=== PATIENT | female | born 1990 | race Caucasian/White ===

== ENCOUNTER 2023-11-01 14:51 | Outpatient (AMB) | payer OTHER, SELFPAY ==
--- NOTE | 2023-11-01 14:37 | MHC.PC.OV ---
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 Is last menstrual period known: Yes Last menstrual period: 11/01/23 Allergies No Known Allergies Allergy (Verified 11/01/23 14:55) Medication List - Last Reconciled 11/01/23 by Jodi Craig MD cholecalciferol (vitamin D3) 25 mcg PO DAILY magnesium oxide 400 mg PO DAILY mycophenolate mofetil 500 mg PO BID nifedipine ER 30 mg PO DAILY prednisone 5 mg PO DAILY sennosides-docusate sodium 8.6-50 mg (Senokot-S) 1 tab-cap PO BEDTIME sodium bicarbonate 650 mg PO BID tacrolimus 1 mg PO Q12H Tobacco use date assessed: 11/01/23 Dental Screening Dental Screen Date: 11/01/23 Did you have a dental visit in the last 12 months?: No Did you have a dental problem in the last 6 months where you did not have access to dental care?: No Was dental information given to patient?: Yes HPI HPI Comments History of Present Illness Details 33 year old female with a past medical of ESRD s/p transplant, congenital kidney disease, hypertension, depression presenting to [facility]. Moved from [facility] Was living in [facility]-getting routine care at [facility]. Tells me at age 25 found out she had congenitally small and poor functioning kidneys ultimately going for transplant 08/2020. Got fistula but never got HD. On immunosuppresant therapy. Running low on sodium bicarbonate rx. Needs local nephrology Depression: Previously on sertraline. Says this was ineffective and she stopped quite awhile ago. She would like to try another medication. ROS CONSTITUTIONAL: Denies weight loss, fever and chills. HEENT: Denies changes in vision and hearing. RESPIRATORY: Denies SOB and cough. CV: Denies palpitations and CP GI: Denies abdominal pain, nausea, vomiting and diarrhea. : Denies dysuria and urinary frequency. MSK: Denies new myalgia and joint pain. SKIN: Denies rash and pruritus. NEUROLOGICAL: Denies headache PSYCHIATRIC: see PHQ9 PHYSICAL EXAM: GENERAL: Alert and oriented x 3. NAD EYES: EOMI. Anicteric. HENT: Moist mucous membranes. No scleral icterus. No cervical lymphadenopathy. LUNGS: Clear to auscultation bilaterally. CARDIOVASCULAR: Regular rate and rhythm. No murmur. No JVD. ABDOMEN: Soft, non-tender +bs EXTREMITIES: No edema. Non-tender. SKIN: Right AV fistula site NEUROLOGIC: No focal neurological deficits. PSYCHIATRIC: Cooperative. Appropriate mood and affect [facility] Surgical History (Updated 11/01/23 @ 15:26 by oJdi Craig MD) Kidney replaced by transplant Family History (Updated 11/01/23 @ 15:20 by SMA Alisson) Mother HTN (hypertension) Father Diabetes Cardiovascular disease Social History Housing: House Patient Tobacco Use Status: Never used Tobacco e-Cigarette/Vaping Use: Never Used Second Hand Smoke Exposure: No service: No Current occupational status: unemployed Cognitive needs: No Hearing needs: No Vision needs: No Female Reproductive History Menstrual Date of last menstrual period: 11/01/23 Questionnaire PHQ-9 Over the last 2 weeks, how often have you been bothered by any of the following problems? 1. Little interest or pleasure in doing things: more than half the days 2. Feeling down, depressed, or hopeless: nearly every day 3. Trouble falling or staying asleep, or sleeping too much: more than half the days 4. Feeling tired or having little energy: more than half the days 5. Poor appetite or overeating: more than half the days 6. Feeling bad about yourself - or that you are a failure or have let yourself or your family down: more than half the days 7. Trouble concentrating on things, such as reading the newspaper or watching television: more than half the days 8. Moving or speaking so slowly that other people could have noticed. Or the opposite - being so fidgety or restless that you have been moving around a lot more than usual: several days 9. Thoughts that you would be better off or of hurting yourself in some way: not at all Total score: 16 Depression Screening Interpretation: Positive Depression Screening Follow-up: Existing condition and New Medication prescribed Depression Screening Done: Yes 37776 - PHQ-9 Billing: Yes Source: Developed by Drs. Nader Sahu, Dona Cruz, New Parnell and colleagues, with an educational jeremiah from [employer]. Thrive Questionnaire Date Thrive assessed: 11/01/23 I am a: Patient What is your living situation today?: I do not have a steady places to live Within the past 12 months, did the food you bought not last and you didn't have the money to get more?: Never true Within the past 12 months, did you worry whether your food would run out before you got money to buy more?: Sometimes True Do you have trouble paying for medicines?: No Do you have trouble getting transportation to medical appointments?: No Do you have trouble paying your heating and electricity bill?: No Do you have trouble taking care of your child, family member or friend?: No Do you have trouble with day-to-day activities such as bathing, preparing meals, shopping, managing finances, etc.?: No Are you currently unemployed and looking for a job?: Yes Are you interested in more education?: Yes Please select the resources that you would like help with: Housing/Group Home and Childcare THRIVE Score: 2 AUDIT C Alcohol Use Questionnaire (AUDIT-C) 1. How often do you have a drink containing alcohol?: Never 3. How often do you have six or more drinks on one occasion?: Never Total Score: 0 PEDRO-7 AMB Questionnaire PEDRO-7 Feeling nervous, anxious, or on edge: 1 = Several days Not being able to stop or control worryin = More than half the days Worrying too much about different things: 1 = Several days Trouble relaxin = Several days Being so restless that it is hard to sit still: 0 = Not at all Becoming easily annoyed or irritable: 3 = Nearly every day Feeling afraid as if something awful might happen: 1 = Several days Total PEDRO-7 score (0-4 normal; 5-9 mild; 10-14 moderate; 15-21 severe): 9 Source: Developed by Drs. Nader Sahu, [place] and colleagues, with an educational jeremiah from [employer]. PEDRO-7 Assessment Billing PEDRO-7 Assessment Tool: PEDRO-7 Assessment 55470 Physical exam (Primary Care) Vital Signs: Last Vital Signs Temp 97.9 F 11/01/23 14:59 Pulse 93 11/01/23 14:59 BP 126/76 11/01/23 14:59 Pulse Ox 98 11/01/23 14:59 Oxygen Delivery Method Room Air 11/01/23 14:59 BMI result Body Mass Index 38.4 Tobacco/Smoking Status: Tobacco use Status Tobacco use date assessed 11/01/23 11/01/23 15:04 Patient Tobacco Use Status Never used Tobacco 11/01/23 15:04 e-Cigarette/Vaping Use Never Used 11/01/23 15:04 Depression Screening Interpretation: Positive Depression Screening Follow-up: Existing condition and New Medication prescribed Assessment and Plan Assessment & Plan (1) Encounter to establish care: Code(s): Z76.89 - Persons encountering health services in other specified circumstances Plan: 33 yo female presenting to establish care. Past medical, surgical, social and family history reviewed. Patients medical records have not yet been transferred. referral placed to nephrology (2) Constipation: Code(s): K59.00 - Constipation, unspecified Qualifiers: Constipation type: unspecified constipation type Qualified Code(s): K59.00 - Constipation, unspecified (3) Hypertension: Code(s): I10 - Essential (primary) hypertension Qualifiers: Hypertension type: primary hypertension Qualified Code(s): I10 - Essential (primary) hypertension Plan: stable on current medications (4) Major depressive disorder, recurrent episode: Comment: start wellbutrin 150mg daily. return six weeks Code(s): F33.9 - Major depressive disorder, recurrent, unspecified Qualifiers: Major depression episode severity: moderate Qualified Code(s): F33.1 - Major depressive disorder, recurrent, moderate (5) History of kidney transplant: Code(s): Z94.0 - Kidney transplant status (6) Immunosuppressed status: Code(s): D84.9 - Immunodeficiency, unspecified Orders: Referrals Nephrology Referral Z94.0 - Kidney transplant status Medications: New sodium bicarbonate 650 mg PO BID 90 days 180 tabs 1RF bupropion HCl XL 150 mg PO DAILY 90 tabs 1RF Coding Level of Care Code New Pt Level 5 (34616) Diagnoses Encounter to establish care Z76.89 Constipation, unspecified constipation type K59.00 Constipation type: unspecified constipation type Primary hypertension I10 Hypertension type: primary hypertension Moderate episode of recurrent major depressive disorder F33.1 Major depression episode severity: moderate History of kidney transplant Z94.0 Immunosuppressed status D84.9 Additional Codes PEDRO-7 Assessment Billing - PEDRO-7 Assessment Tool: PEDRO-7 Assessment [id number] ([id number])
[2023-11-01 14:59] VITALS: BP 126/76; PULSE 93; TEMP 36.6; O2SAT 98; BMI 38.4
== END 2023-11-01 15:44 | disposition home or self-care (01) ==
PROVIDERS: PCP Internal Medicine; Visit Provider Internal Medicine
DX: I10 Essential (primary) hypertension (principal); F33.1 Major depressive disorder, recurrent, moderate; D84.9 Immunodeficiency, unspecified; Z76.89 Persons encountering health services in other specified circumstances; K59.00 Constipation, unspecified; Z94.0 Kidney transplant status
CPT/HCPCS: 96127; 99204

== ENCOUNTER 2024-03-02 15:11 | Outpatient (AMB) | payer MEDICARE, MEDICAID, SELFPAY ==
--- NOTE | 2024-03-02 15:25 | MHC.PC.OV ---
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 Tells me at age 25 found out she had congenitally small and poor functioning kidneys ultimately going for transplant 08/2020. Got fistula but never got HD. On immunosuppresant therapy. Running low on sodium bicarbonate rx. Needs local nephrology-at last visit was referred however her insurance would not cover. She has a kab slip from her previous provider in [place] Depression: Previously on sertraline. She was placed on wellbutrin at her last visit. She says she is feeling better on the medication. Says this was ineffective and she stopped quite awhile ago. She would like to try another medication. ROS CONSTITUTIONAL: Denies weight loss, fever and chills. HEENT: Denies changes in vision and hearing. RESPIRATORY: Denies SOB and cough. CV: Denies palpitations and CP GI: Denies abdominal pain, nausea, vomiting and diarrhea. : Denies dysuria and urinary frequency. MSK: Denies new myalgia and joint pain. SKIN: Denies rash and pruritus. NEUROLOGICAL: Denies headache PSYCHIATRIC: see PHQ9 PHYSICAL EXAM: GENERAL: Alert and oriented x 3. NAD EYES: EOMI. Anicteric. HENT: Moist mucous membranes. No scleral icterus. No cervical lymphadenopathy. LUNGS: Clear to auscultation bilaterally. CARDIOVASCULAR: Regular rate and rhythm. No murmur. No JVD. ABDOMEN: Soft, non-tender +bs EXTREMITIES: No edema. Non-tender. SKIN: Right AV fistula site NEUROLOGIC: No focal neurological deficits. PSYCHIATRIC: Cooperative. Appropriate mood and affect [facility] Surgical History (Updated 11/01/23 @ 15:26 by Jodi Craig MD) Kidney replaced by transplant Family History (Updated 11/01/23 @ 15:20 by SMA Alisson) Mother HTN (hypertension) Father Diabetes Cardiovascular disease Social History Housing: House Patient Tobacco Use Status: Never used Tobacco e-Cigarette/Vaping Use: Never Used Second Hand Smoke Exposure: No service: No Current occupational status: unemployed Cognitive needs: No Hearing needs: No Vision needs: No Questionnaire PHQ-9 Over the last 2 weeks, how often have you been bothered by any of the following problems? 1. Little interest or pleasure in doing things: several days 2. Feeling down, depressed, or hopeless: more than half the days 3. Trouble falling or staying asleep, or sleeping too much: several days 4. Feeling tired or having little energy: several days 5. Poor appetite or overeating: several days 6. Feeling bad about yourself - or that you are a failure or have let yourself or your family down: several days 8. Moving or speaking so slowly that other people could have noticed. Or the opposite - being so fidgety or restless that you have been moving around a lot more than usual: not at all Depression Screening Interpretation: Positive Depression Screening Done: Yes 35641 - PHQ-9 Billing: Yes Source: Developed by Drs. Nader Sahu, Dona Cruz, [place] and colleagues, with an educational jeremiah from [employer]. Thrive Questionnaire Date Thrive assessed: 03/02/24 I am a: Patient What is your living situation today?: I do not have a steady places to live I am temporarily staying with others Within the past 12 months, did the food you bought not last and you didn't have the money to get more?: Sometimes True Within the past 12 months, did you worry whether your food would run out before you got money to buy more?: Sometimes True Do you have trouble paying for medicines?: I choose not to answer this question Do you have trouble getting transportation to medical appointments?: I choose not to answer this question Do you have trouble paying your heating and electricity bill?: I choose not to answer this question Do you have trouble taking care of your child, family member or friend?: No Do you have trouble with day-to-day activities such as bathing, preparing meals, shopping, managing finances, etc.?: No Are you currently unemployed and looking for a job?: I choose not to answer this question Are you interested in more education?: I choose not to answer this question Please select the resources that you would like help with: Housing/[employer] and Food Currently or been in a relationship where the following occur: I choose not to answer THRIVE Score: 3 AUDIT C Alcohol Use Questionnaire (AUDIT-C) 1. How often do you have a drink containing alcohol?: Never 3. How often do you have six or more drinks on one occasion?: Never Total Score: 0 PEDRO-7 AMB Questionnaire PEDRO-7 Feeling nervous, anxious, or on edge: 2 = More than half the days Not being able to stop or control worryin = Nearly every day Worrying too much about different things: 3 = Nearly every day Trouble relaxin = More than half the days Being so restless that it is hard to sit still: 0 = Not at all Becoming easily annoyed or irritable: 2 = More than half the days Feeling afraid as if something awful might happen: 3 = Nearly every day Total PEDRO-7 score (0-4 normal; 5-9 mild; 10-14 moderate; 15-21 severe): 15 Source: Developed by Drs. Nader Sahu, Dona Cruz, New Parnell and colleagues, with an educational jeremiah from [employer]. Physical exam (Primary Care) Vital Signs: Last Vital Signs Pulse 100 03/02/24 15:31 BP 108/72 03/02/24 15:31 Pulse Ox 98 03/02/24 15:31 Oxygen Delivery Method Room Air 03/02/24 15:31 BMI result Body Mass Index 37.7 Tobacco/Smoking Status: Tobacco use Status Tobacco use date assessed 11/01/23 03/02/24 15:26 Patient Tobacco Use Status Never used Tobacco 03/02/24 15:26 e-Cigarette/Vaping Use Never Used 03/02/24 15:26 Depression Screening Interpretation: Positive Thrive Assessment: Date of Thrive Assessment Date Thrive assessed 03/02/24 03/02/24 15:26 Currently or been in a relationship where the following occur: I choose not to answer Coding Level of Care Code Est Pt Level 4 (70472) Diagnoses Moderate episode of recurrent major depressive disorder F33.1 Major depression episode severity: moderate History of kidney transplant Z94.0 Assessment & Plan Assessment & Plan (1) Major depressive disorder, recurrent episode: Code(s): F33.9 - Major depressive disorder, recurrent, unspecified Category: Medical Qualifiers: Major depression episode severity: moderate Qualified Code(s): F33.1 - Major depressive disorder, recurrent, moderate Plan: Improved on med (2) History of kidney transplant: Code(s): Z94.0 - Kidney transplant status Category: Surgical Plan: Referred to nephrology-RTA Orders: Referrals Nephrology Referral D84.9 - Immunodeficiency, unspecified, Z94.0 - Kidney transplant status Medications: New furosemide 20 mg PO DAILY 90 tabs 3RF tacrolimus 1 mg PO Q12H 180 caps 3RF
[2024-03-02 15:31] VITALS: BP 108/72; PULSE 100; O2SAT 98; BMI 37.7
== END 2024-03-02 15:50 | disposition home or self-care (01) ==
PROVIDERS: PCP Internal Medicine; Visit Provider Internal Medicine
DX: F33.1 Major depressive disorder, recurrent, moderate (principal); Z94.0 Kidney transplant status

== ENCOUNTER → 2024-03-02 15:11 | Outpatient (BNVA) | payer MEDICARE, SELFPAY | PROVIDERS: PCP Internal Medicine; Visit Provider Internal Medicine ==

== ENCOUNTER 2024-03-02 15:58 | Outpatient (REF) | payer MEDICARE, SELFPAY ==
[2024-03-02 17:21] LABS: MANUAL DIFF FLAG NO
[2024-03-02 17:37] LABS: Basophils Absolute Auto 0.1 X10*3/uL (0.0-0.2); Basophils Percent Auto 0.7 % (0-2); Eosinophils Absolute Auto 0.1 X10*3/uL (0.0-0.4); Eosinophils Percent Auto 0.6 % (0-4); Hematocrit 39.4 % (37.0-47.0); Hemoglobin 12.7 g/dl (12.0-16.0); Imm Gran Abs Auto 0.02 X10*3/uL (0.00-0.03); Imm Gran Pct Auto 0.2 % (0.0-0.4); Lymphocytes Absolute Auto 1.4 X10*3/uL (1.2-4.9); Lymphocytes Percent Auto 14.6 % (20-40); Mean Corpuscular HGB Conc 32.2 g/dl (31.0-35.0); Mean Corpuscular Hemoglobin 27.4 pg (27.0-33.0); Mean Corpuscular Volume 84.9 fL (80.0-98.0); Mean Platelet Volume 11.2 fL (9.4-12.3); Monocytes Absolute Auto 0.7 X10*3/uL (0.1-1.2); Monocytes Percent Auto 7.1 % (2-11); Neutrophils Absolute Auto 7.6 x10*3/uL (2.0-8.3); Neutrophils Percent Auto 76.8 % (45-73); Platelet Count 335 X10*3/uL (160-400); Red Blood Count 4.64 X10*6/uL (4.20-5.50); White Blood Count 9.8 X10*3/uL (4.8-10.8)
[2024-03-02 17:38] LABS: Creatinine Urine 163.46 mg/dL; Total Protein Urine Random 14 mg/dL (<12)
[2024-03-02 17:55] LABS: Alanine Aminotransferase 20 U/L (0-31); Albumin Level 4.2 g/dL (3.5-5.0); Alkaline Phosphatase 91 U/L (39-117); Anion Gap 14 (12-20); Aspartate Amino Transferase 21 U/L (5-31); Bilirubin Direct 0.2 mg/dL (0.0-0.5); Bilirubin Total 0.6 mg/dL (0.0-1.0); Blood Urea Nitrogen 21 mg/dL (9-16); Calcium 9.4 mg/dL (8.4-10.2); Carbon Dioxide 23 mmol/L (22-29); Chloride 105 mmol/L (96-108); Estimated Glomerular Filt Rate 35; Glucose Random 94 mg/dL (60-115); Lactate Dehydrogenase 208 U/L (122-220); Phosphorus 3.4 mg/dL (2.7-4.5); Potassium 3.9 mmol/L (3.3-5.1); Sodium 138 mmol/L (135-145); Total Protein 7.9 g/dL (6.5-8.0)
[2024-03-04 01:54] LABS: Tacrolimus Prograf 5.6 mcg/L
== END 2024-03-02 15:59 | disposition home or self-care (01) ==
LOC: HO.WFDLDS 15:58
PROVIDERS: Visit Provider Internal Medicine Nephrology
DX: F33.1 Major depressive disorder, recurrent, moderate (principal); D84.9 Immunodeficiency, unspecified; Z94.0 Kidney transplant status; D63.1 Anemia in chronic kidney disease; N39.0 Urinary tract infection, site not specified; Z51.81 Encounter for therapeutic drug level monitoring; E78.5 Hyperlipidemia, unspecified; R80.9 Proteinuria, unspecified
CPT/HCPCS: 36415; 80053; 80197; 82248; 82570; 83615; 83735; 84100; 84156; 85025; 99212

== ENCOUNTER 2024-03-26 14:39 | Outpatient (AMB) | payer MEDICARE, MEDICAID, SELFPAY ==
--- NOTE | 2024-03-26 14:44 | HO.NEPHOV_ITS ---
Vital Signs 03/26/24 14:49 Height 5 ft 1.42 in Weight 202 lb 2 oz BMI 37.7 BP 112/60 Blood Pressure Location Lt brachial Position Sitting Pulse 107 H Pulse Source Pulse Oximeter Pulse Oximetry (%) 99 Oxygen Delivery Method Room Air Intake Visit Reasons: Kidney transplant status-Conf Foreign Trade Teacher Required: Yes Foreign Trade Teacher Language: Heel Cutter Services: Foreign Trade Teacher Present Foreign Trade Teacher Name: [id number] Information Interpreted: clinical only Accompanied by: Child Allergies No Known Allergies Allergy (Verified 03/26/24 14:49) Medication List - Last Reconciled 03/26/24 by Cruz New MD bupropion HCl XL 150 mg PO DAILY cholecalciferol (vitamin D3) 25 mcg PO DAILY furosemide 20 mg PO DAILY magnesium oxide 400 mg PO DAILY mycophenolate mofetil 500 mg PO TID nifedipine ER 30 mg PO DAILY prednisone 5 mg PO DAILY sodium bicarbonate 1,300 mg PO QID tacrolimus 3 mg PO DAILY HPI Comments Details: Ms. 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 She was never on dialysis and had a pre-emptive transplant. She had a right upper extremity AV fistula. Her PRA was 87%, EPTS 2% with the donor/recipient HLA MM, A, B, DR 2,2,2. Surgery was performed by Dr. Ugarte, right to right. Her donor KDPI was 40 6%. Donor history unremarkable. CMV donor was negative but recipient positive. EBV donor positive and recipient positive. Induction was done with Thymoglobulin and maintenance treatment had been with prednisone, tacrolimus and mycophenolate. She never had any significant proteinuria with a stable serum creatinine around 1.4. She had DSA absent by the last result fax note to me from [place]. Her CMV prophylaxis was completed on 11/20/2021 with a PCP/toxo prophylaxis completed on 02/20/2022. Her BK and CMV PCR was negative on 11/12/22. She has hypertension and is on nifedipine. Her blood pressure is quite well controlled. Her PTH and vitamin-D had been well controlled. She has been taking oral vitamin-D D. Her serum uric acid has been normal. She has moved from [facility] and is here to establish transplant renal care. She does not have any chest pain, shortness of breath, paroxysmal nocturnal dyspnea, orthopnea, orthostatic symptoms, pedal edema, skin rashes, joint swellings. She does not take any nonsteroidal anti-inflammatories. She claims to be compliant with her medications. [facility] Medical History (Updated 03/26/24 @ 14:53 by Cruz New MD) AV fistula Asthma Hypertension Surgical History (Updated 03/26/24 @ 09:12 by Mary Beth Jiang MA) Status post biopsy of kidney H/O tubal ligation Kidney replaced by transplant Family History (Updated 11/01/23 @ 15:20 by SMA Alisson) Mother HTN (hypertension) Father Diabetes Cardiovascular disease Social History Housing: House Patient Tobacco Use Status: Never used Tobacco e-Cigarette/Vaping Use: Never Used Second Hand Smoke Exposure: No service: No Current occupational status: unemployed Cognitive needs: No Hearing needs: No Vision needs: No Review of Systems Const All systems reviewed & are unremarkable except as noted in HPI and below Physical Exam Const General: comfortable and no acute distress Orientation/consciousness: patient oriented x3 HEENT Head: Yes normocephalic Mouth: Normal oral and palatal mucosa present Eyes EOM: EOMs intact bilaterally Neck Neck: Yes supple Resp Auscultation: clear to auscultation bilaterally Cardio Jugular venous distension: no JVD Rate: regular rate GI Palpation (GI): Soft to palpation Auscultation: normal bowel sounds General: Yes no CVA tenderness Back/Spine/Pelvis Back: no CVA tenderness Skin General skin exam: no rashes or lesions noted Neuro General: patient oriented x3 and moves all extremities Extrem General: Yes no pedal edema Results Reviewed Nephrology Results: Hgb 12.7 g/dl (12.0-16.0) 03/02/24 WBC 9.8 X10*3/uL (4.8-10.8) 03/02/24 Plt Count 335 X10*3/uL (160-400) 03/02/24 Sodium 138 mmol/L (135-145) 03/02/24 Potassium 3.9 mmol/L (3.3-5.1) 03/02/24 Chloride 105 mmol/L (96-108) 03/02/24 Carbon Dioxide 23 mmol/L (22-29) 03/02/24 BUN 21 mg/dL (9-16) H 03/02/24 Creatinine 1.71 mg/dL (0.5-1.4) H 03/02/24 Calcium 9.4 mg/dL (8.4-10.2) 03/02/24 Phosphorus 3.4 mg/dL (2.7-4.5) 03/02/24 Urine Creatinine 163.46 mg/dL 03/02/24 Assessment & Plan Assessment & Plan (1) History of kidney transplant: Code(s): Z94.0 - Kidney transplant status Category: Surgical (2) Hypertension: Code(s): I10 - Essential (primary) hypertension Category: Medical Qualifiers: Hypertension type: secondary to other renal disorders Qualified Code(s): I15.1 - Hypertension secondary to other renal disorders (3) Immunosuppressed status: Code(s): D84.9 - Immunodeficiency, unspecified Category: Medical Plan Mr. 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 She never was on dialysis even though she had a upper extremity AV fistula. Her baseline serum creatinine has been around 1.4-1.5 which has gone up to 1.7 now. She is not known to have any significant proteinuria. She has no history of DSA positivity, cellular or antibody mediated rejection. She has history of high PRA and has been on tacrolimus and mycophenolate along with prednisone. Her CMV and PCP prophylaxis were completed in 2021. Her blood pressure has been well controlled on nifedipine. He needs to lose weight. She is on oral sodium bicarbonate and magnesium replacement along with a vitamin-D. I have ordered repeat blood work. If her serum creatinine goes up, she may need a transplant renal biopsy. All these were discussed in detail with an muff winder. All questions answered. Time spent retrieving records, encounter, documentation 63 minutes. F/U given Orders: Orders Tacrolimus Prograf 3 Weeks Cruz New MD D84.9 - Immunodeficiency, unspecified, Z94.0 - Kidney transplant status Creatinine 3 Weeks Cruz New MD D84.9 - Immunodeficiency, unspecified, Z94.0 - Kidney transplant status Blood Urea Nitrogen 3 Weeks Cruz New MD D84.9 - Immunodeficiency, unspecified, Z94.0 - Kidney transplant status Magnesium 3 Weeks Cruz New MD D84.9 - Immunodeficiency, unspecified, Z94.0 - Kidney transplant status Alanine Aminotransferase 3 Weeks Cruz New MD D84.9 - Immunodeficiency, unspecified, Z94.0 - Kidney transplant status Aspartate Amino Transferase 3 Weeks Cruz New MD D84.9 - Immunodeficiency, unspecified, Z94.0 - Kidney transplant status Protein Creatinine Ratio, Ur 3 Weeks Cruz New MD D84.9 - Immunodeficiency, unspecified, Z94.0 - Kidney transplant status Other Ref Test - Misc 3 Weeks Cruz New MD D84.9 - Immunodeficiency, unspecified, Z94.0 - Kidney transplant status Complete Blood Count Auto Diff 3 Weeks Cruz New MD D84.9 - Immunodeficiency, unspecified, Z94.0 - Kidney transplant status Electrolytes 3 Weeks Cruz New MD D84.9 - Immunodeficiency, unspecified, Z94.0 - Kidney transplant status Calcium 3 Weeks Cruz New MD D84.9 - Immunodeficiency, unspecified, Z94.0 - Kidney transplant status Phosphorus 3 Weeks Cruz New MD D84.9 - Immunodeficiency, unspecified, Z94.0 - Kidney transplant status UA and rflx microscopic 3 Weeks Cruz New MD D84.9 - Immunodeficiency, unspecified, Z94.0 - Kidney transplant status Prothrombin Time INR 3 Weeks Cruz New MD D84.9 - Immunodeficiency, unspecified, Z94.0 - Kidney transplant status Medications: Changed From tacrolimus 1 mg PO Q12H 180 caps 3RF To tacrolimus 1 tab 9AM 2 tabs 9PM 3 mg PO DAILY Jodi Craig MD From sodium bicarbonate 1,300 mg PO QID To sodium bicarbonate 1,300 mg (2 x 650 mg) PO QID 30 days 240 tabs 6RF Cruz New MD Coding Level of Care Code New Pt Level 5 (24321) Diagnoses History of kidney transplant Z94.0 Hypertension secondary to other renal disorders I15.1 Hypertension type: secondary to other renal disorders Immunosuppressed status D84.9
[2024-03-26 14:49] VITALS: BP 112/60; PULSE 107; O2SAT 99; BMI 37.7
== END 2024-03-26 15:17 | disposition home or self-care (01) ==
LOC: HO.HKA 14:40
PROVIDERS: PCP Internal Medicine; Referring Provider Internal Medicine; Visit Provider Internal Medicine Nephrology
DX: Z94.0 Kidney transplant status (principal); I15.1 Hypertension secondary to other renal disorders; D84.9 Immunodeficiency, unspecified
CPT/HCPCS: 99205

== ENCOUNTER → 2024-03-26 14:39 | Outpatient (BNVA) | payer MEDICARE, MEDICAID, SELFPAY | PROVIDERS: PCP Internal Medicine; Referring Provider Internal Medicine; Visit Provider Internal Medicine Nephrology | DX: I15.1 Hypertension secondary to other renal disorders (principal); D84.9 Immunodeficiency, unspecified; Z94.0 Kidney transplant status | CPT/HCPCS: 99202 ==

== ENCOUNTER 2024-05-01 10:14 | Outpatient (REF) | payer MEDICARE, MEDICAID, SELFPAY ==
[2024-05-01 11:00] LABS: MANUAL DIFF FLAG NO
[2024-05-01 11:05] LABS: Basophils Absolute Auto 0.1 X10*3/uL (0.0-0.2); Basophils Percent Auto 1.3 % (0-2); Eosinophils Absolute Auto 0.1 X10*3/uL (0.0-0.4); Eosinophils Percent Auto 1.1 % (0-4); Hematocrit 38.4 % (37.0-47.0); Hemoglobin 12.3 g/dl (12.0-16.0); Imm Gran Abs Auto 0.03 X10*3/uL (0.00-0.03); Imm Gran Pct Auto 0.5 % (0.0-0.4); Lymphocytes Absolute Auto 1.5 X10*3/uL (1.2-4.9); Lymphocytes Percent Auto 23.7 % (20-40); Mean Corpuscular Hemoglobin 27.7 pg (27.0-33.0); Mean Corpuscular Volume 86.5 fL (80.0-98.0); Mean Platelet Volume 10.9 fL (9.4-12.3); Monocytes Absolute Auto 0.6 X10*3/uL (0.1-1.2); Monocytes Percent Auto 9.4 % (2-11); Platelet Count 264 X10*3/uL (160-400); Red Blood Count 4.44 X10*6/uL (4.20-5.50); Red Cell Distribution Width 13.4 % (11.0-16.0); White Blood Count 6.3 X10*3/uL (4.8-10.8)
[2024-05-01 11:07] LABS: INTERNATIONAL NORM RATIO 1.1 (0.9-1.1); Prothrombin Time 12.5 SEC (10.9-12.4)
[2024-05-01 11:08] LABS: Appearance Urine Clear; Color Urine Yellow; Glucose Urine UA Negative (Negative); Leukocyte Esterase Urine Negative (Negative); Nitrite Urine Negative (Negative); PH 6.5 (5.0-9.0); Urine Blood Negative (Negative); Urine Ketones Negative (Negative); Urine Protein Negative (Neg-Trace)
[2024-05-01 11:50] LABS: Alanine Aminotransferase 20 U/L (0-31); Anion Gap 13 (12-20); Aspartate Amino Transferase 21 U/L (5-31); Blood Urea Nitrogen 17 mg/dL (9-16); Carbon Dioxide 25 mmol/L (22-29); Chloride 108 mmol/L (96-108); Estimated Glomerular Filt Rate 40; Phosphorus 2.8 mg/dL (2.7-4.5); Potassium 4.5 mmol/L (3.3-5.1); Sodium 141 mmol/L (135-145)
[2024-05-01 11:51] LABS: Creatinine Urine 159.31 mg/dL; Protein/Creatinine Ratio, Ur 0.08 (<0.2); Total Protein Urine Random 13 mg/dL (<12)
[2024-05-02 13:58] LABS: Tacrolimus Prograf 3.4 mcg/L
== END 2024-05-01 10:15 | disposition home or self-care (01) ==
LOC: HO.10HDL 10:14
PROVIDERS: Visit Provider Internal Medicine Nephrology
DX: D84.9 Immunodeficiency, unspecified (principal); Z94.0 Kidney transplant status
CPT/HCPCS: 36415; 80051; 80197; 81003; 82310; 82565; 82570; 83735; 84100; 84156; 84450; 84460; 84520; 85025; 85610; 87799

== ENCOUNTER 2024-05-04 14:04 | Outpatient (AMB) | payer MEDICARE, MEDICAID, SELFPAY ==
--- NOTE | 2024-05-04 14:10 | HO.NEPHOV ---
Vital Signs 05/04/24 14:12 Height 5 ft 1.42 in Weight 205 lb 6 oz BMI 38.3 BP 102/70 Blood Pressure Location Lt brachial Position Sitting Pulse 99 Pulse Source Pulse Oximeter Pulse Oximetry (%) 98 Oxygen Delivery Method Room Air Intake Visit Reasons: Kidney transplant status-LV [employer] Required: Yes [employer] Language: Office Services Associate Services: [employer] Present [employer] Name: Nicole [id number] Information Interpreted: clinical only Accompanied by: Child Allergies No Known Allergies Allergy (Verified 05/04/24 14:11) Medication List - Last Reconciled 05/04/24 by Cruz New MD bupropion HCl XL 150 mg PO DAILY cholecalciferol (vitamin D3) 25 mcg PO DAILY furosemide 20 mg PO DAILY magnesium oxide 400 mg PO DAILY mycophenolate mofetil 500 mg (2 x 250 mg) PO TID nifedipine ER 30 mg PO DAILY prednisone 5 mg PO DAILY sodium bicarbonate 1,300 mg (2 x 650 mg) PO QID 30 days tacrolimus 2 mg PO BID HPI Comments Details: Ms. 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 She was never on dialysis and had a pre-emptive transplant. She had a right upper extremity AV fistula. Her PRA was 87%, EPTS 2% with the donor/recipient HLA MM, A, B, DR 2,2,2. Surgery was performed by Dr. Ugarte, right to right. Her donor KDPI was 40 6%. Donor history unremarkable. CMV donor was negative but recipient positive. EBV donor positive and recipient positive. Induction was done with Thymoglobulin and maintenance treatment had been with prednisone, tacrolimus and mycophenolate. She never had any significant proteinuria with a stable serum creatinine around 1.4. It had gone upto 1.7 which improved to 1.5. She had DSA absent by the last result fax note to me from [place]. Her CMV prophylaxis was completed on 11/20/2021 with a PCP/toxo prophylaxis completed on 02/20/2022. Her BK and CMV PCR was negative on 11/12/22. She has hypertension and is on nifedipine. Her blood pressure is quite well controlled. Her PTH and vitamin-D had been well controlled. She has been taking oral vitamin-D D. Her serum uric acid has been normal. She has moved from [facility] and was seen for transplant renal care. She does not have any chest pain, shortness of breath, paroxysmal nocturnal dyspnea, orthopnea, orthostatic symptoms, pedal edema, skin rashes, joint swellings. She does not take any nonsteroidal anti-inflammatories. She claims to be compliant with her medications. Her tacrolimus dose has been increased to 2 mg bid after last blood work. [facility] Medical History (Updated 03/26/24 @ 14:53 by Cruz New MD) AV fistula Asthma Hypertension Surgical History Status post biopsy of kidney H/O tubal ligation Kidney replaced by transplant Family History Mother HTN (hypertension) Father Diabetes Cardiovascular disease Social History Housing: House Patient Tobacco Use Status: Never used Tobacco e-Cigarette/Vaping Use: Never Used Second Hand Smoke Exposure: No service: No Current occupational status: unemployed Cognitive needs: No Hearing needs: No Vision needs: No Review of Systems Const All systems reviewed & are unremarkable except as noted in HPI and below Physical Exam Vital Signs: Last Vital Signs Pulse 99 05/04/24 14:12 BP 102/70 05/04/24 14:12 Pulse Ox 98 05/04/24 14:12 Oxygen Delivery Method Room Air 05/04/24 14:12 BMI result Body Mass Index 38.3 Const General: comfortable and no acute distress Orientation/consciousness: patient oriented x3 HEENT Head: Yes normocephalic Mouth: Normal oral and palatal mucosa present Eyes EOM: EOMs intact bilaterally Neck Neck: Yes supple Resp Auscultation: clear to auscultation bilaterally Cardio Jugular venous distension: no JVD Rate: regular rate GI Palpation (GI): Soft to palpation Auscultation: normal bowel sounds General: Yes no CVA tenderness Back/Spine/Pelvis Back: no CVA tenderness Skin General skin exam: no rashes or lesions noted Neuro General: patient oriented x3 and moves all extremities Extrem General: Yes no pedal edema Results Reviewed Nephrology Results: Hgb 12.3 g/dl (12.0-16.0) 05/01/24 WBC 6.3 X10*3/uL (4.8-10.8) 05/01/24 Plt Count 264 X10*3/uL (160-400) 05/01/24 Sodium 141 mmol/L (135-145) 05/01/24 Potassium 4.5 mmol/L (3.3-5.1) 05/01/24 Chloride 108 mmol/L (96-108) 05/01/24 Carbon Dioxide 25 mmol/L (22-29) 05/01/24 BUN 17 mg/dL (9-16) H 05/01/24 Creatinine 1.53 mg/dL (0.5-1.4) H 05/01/24 Calcium 9.0 mg/dL (8.4-10.2) 05/01/24 Phosphorus 2.8 mg/dL (2.7-4.5) 05/01/24 Urine Protein Negative mg/dL (Neg-Trace) 05/01/24 Urine Creatinine 159.31 mg/dL 05/01/24 Protein/Creatinin Ratio 0.08 (<0.2) 05/01/24 Assessment & Plan Assessment & Plan (1) History of kidney transplant: Code(s): Z94.0 - Kidney transplant status Category: Surgical (2) Hypertension: Code(s): I10 - Essential (primary) hypertension Category: Medical Qualifiers: Hypertension type: secondary to other renal disorders Qualified Code(s): I15.1 - Hypertension secondary to other renal disorders Plan Mr. 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 She never was on dialysis even though she had a upper extremity AV fistula. Her baseline serum creatinine has been around 1.4-1.5 which had gone up to 1.7 but back to baseline now. She is not known to have any significant proteinuria. She has no history of DSA positivity, cellular or antibody mediated rejection. She has history of high PRA and has been on tacrolimus and mycophenolate along with prednisone. Her CMV and PCP prophylaxis were completed in 2021. Her blood pressure has been well controlled on nifedipine. He needs to lose weight. She is on oral sodium bicarbonate and magnesium replacement along with a vitamin-D. All these were discussed in detail with an japanese interpreter. All questions answered. Orders: Orders Electrolytes 2 Months I15.1 - Hypertension secondary to other renal disorders, Z94.0 - Kidney transplant status Blood Urea Nitrogen 2 Months I15.1 - Hypertension secondary to other renal disorders, Z94.0 - Kidney transplant status Creatinine 2 Months I15.1 - Hypertension secondary to other renal disorders, Z94.0 - Kidney transplant status Tacrolimus Prograf 2 Months I15.1 - Hypertension secondary to other renal disorders, Z94.0 - Kidney transplant status Medications: Changed From tacrolimus 2 tab 9AM 2 tabs 9PM 2 mg PO BID To tacrolimus 2 tab 9AM 2 tabs 9PM 2 mg (2 x 1 mg) PO BID 30 days 120 caps 3RF Refilled mycophenolate mofetil 500 mg (2 x 250 mg) PO TID 180 caps 6RF sodium bicarbonate 1,300 mg (2 x 650 mg) PO QID 30 days 240 tabs 6RF Coding Level of Care Code Est Pt Level 4 (21139) Diagnoses History of kidney transplant Z94.0 Hypertension secondary to other renal disorders I15.1 Hypertension type: secondary to other renal disorders
[2024-05-04 14:12] VITALS: BP 102/70; PULSE 99; O2SAT 98; BMI 38.3
== END 2024-05-04 14:38 | disposition home or self-care (01) ==
PROVIDERS: PCP Internal Medicine; Visit Provider Internal Medicine Nephrology
DX: I15.1 Hypertension secondary to other renal disorders (principal); Z94.0 Kidney transplant status
CPT/HCPCS: 99214

== ENCOUNTER → 2024-05-04 14:04 | Outpatient (BNVA) | payer MEDICARE, MEDICAID, SELFPAY | PROVIDERS: PCP Internal Medicine; Visit Provider Internal Medicine Nephrology | DX: I15.1 Hypertension secondary to other renal disorders (principal); Z94.0 Kidney transplant status; Z79.899 Other long term (current) drug therapy | CPT/HCPCS: 99212 ==

== ENCOUNTER 2024-05-14 15:04 | Outpatient (AMB) | payer MEDICARE, MEDICAID, SELFPAY ==
--- NOTE | 2024-05-14 15:19 | A.OFFPC_ITS ---
Vital Signs 05/14/24 15:23 Height 5 ft 1.42 in Weight 206 lb 4 oz BMI 38.4 BP 124/76 Blood Pressure Location Lt radial Position Sitting Pulse 93 Pulse Source Pulse Oximeter Pulse Oximetry (%) 99 Oxygen Delivery Method Room Air Intake Visit Reasons: f/up 1/2h Intake Note: Follow up Medical Superintendent Required: Yes Medical Superintendent Language: Nursing Program Director Name: [id number] Allergies No Known Allergies Allergy (Verified 05/14/24 15:23) Tobacco use date assessed: 11/01/23 Dental Screening Dental Screen Date: 11/01/23 HPI HPI Comments History of Present Illness Details 33 year old female with a past medical o f ESRD s/p transplant, congenital kidney disease, hypertension, depression presenting for follow up Nephrology: Following with local nephrology now. stable Was living in [facility]-getting routine care at [facility]. Tells me at age 25 found out she had congenitally small and poor functioning kidneys ultimately going for transplant 08/2020. Got fistula but never got HD. On immunosuppresant therapy. Running low on sodium bicarbonate rx. Needs local nephrology-at last visit was referred however her insurance would not cover. She has a kab slip from her previous provider in [place] Depression: Feeling well on wellbutrin. Previously on sertraline. ROS CONSTITUTIONAL: Denies weight loss, fever and chills. HEENT: Denies changes in vision and hearing. RESPIRATORY: Denies SOB and cough. CV: Denies palpitations and CP GI: Denies abdominal pain, nausea, vomiting and diarrhea. : Denies dysuria and urinary frequency. MSK: Denies new myalgia and joint pain. SKIN: Denies rash and pruritus. NEUROLOGICAL: Denies headache PSYCHIATRIC: see PHQ9 PHYSICAL EXAM: GENERAL: Alert and oriented x 3. NAD EYES: EOMI. Anicteric. HENT: Moist mucous membranes. No scleral icterus. No cervical lymphadenopathy. LUNGS: Clear to auscultation bilaterally. CARDIOVASCULAR: Regular rate and rhythm. No murmur. No JVD. ABDOMEN: Soft, non-tender +bs EXTREMITIES: No edema. Non-tender. SKIN: Right AV fistula site NEUROLOGIC: No focal neurological deficits. PSYCHIATRIC: Cooperative. Appropriate mood and affect [facility] Medical History (Updated 03/26/24 @ 14:53 by Cruz New MD) AV fistula Asthma Hypertension Surgical History Status post biopsy of kidney H/O tubal ligation Kidney replaced by transplant Family History Mother HTN (hypertension) Father Diabetes Cardiovascular disease Social History Housing: House Patient Tobacco Use Status: Never used Tobacco e-Cigarette/Vaping Use: Never Used Second Hand Smoke Exposure: No service: No Current occupational status: unemployed Cognitive needs: No Hearing needs: No Vision needs: No Questionnaire PHQ-9 Over the last 2 weeks, how often have you been bothered by any of the following problems? 7. Trouble concentrating on things, such as reading the newspaper or watching television: not at all 9. Thoughts that you would be better off or of hurting yourself in some way: not at all Source: Developed by Drs. Nader Sahu, Dona Cruz, [place] and colleagues, with an educational jeremiah from [employer]. Thrive Questionnaire Date Thrive assessed: 03/02/24 I am a: Patient What is your living situation today?: I do not have a steady places to live I am temporarily staying with others Within the past 12 months, did the food you bought not last and you didn't have the money to get more?: Sometimes True Within the past 12 months, did you worry whether your food would run out before you got money to buy more?: Sometimes True Do you have trouble paying for medicines?: I choose not to answer this question Do you have trouble getting transportation to medical appointments?: I choose not to answer this question Do you have trouble paying your heating and electricity bill?: I choose not to answer this question Do you have trouble taking care of your child, family member or friend?: No Do you have trouble with day-to-day activities such as bathing, preparing meals, shopping, managing finances, etc.?: No Are you currently unemployed and looking for a job?: I choose not to answer this question Are you interested in more education?: I choose not to answer this question Currently or been in a relationship where the following occur: I choose not to answer THRIVE Score: 3 Physical exam (Primary Care) Vital Signs: Last Vital Signs Pulse 93 05/14/24 15:23 BP 124/76 05/14/24 15:23 Pulse Ox 99 05/14/24 15:23 Oxygen Delivery Method Room Air 05/14/24 15:23 BMI result Body Mass Index 38.4 Tobacco/Smoking Status: Tobacco use Status Tobacco use date assessed 11/01/23 05/14/24 15:20 Patient Tobacco Use Status Never used Tobacco 05/14/24 15:20 e-Cigarette/Vaping Use Never Used 05/14/24 15:20 Thrive Assessment: Date of Thrive Assessment Date Thrive assessed 03/02/24 05/14/24 15:20 Currently or been in a relationship where the following occur: I choose not to answer Coding Level of Care Code Est Pt Level 4 (69208) Diagnoses Moderate episode of recurrent major depressive disorder F33.1 Major depression episode severity: moderate Hypertension secondary to other renal disorders I15.1 Hypertension type: secondary to other renal disorders Assessment & Plan Assessment & Plan (1) Major depressive disorder, recurrent episode: Code(s): F33.9 - Major depressive disorder, recurrent, unspecified Category: Medical Qualifiers: Major depression episode severity: moderate Qualified Code(s): F33.1 - Major depressive disorder, recurrent, moderate Plan: stable on current medications (2) Hypertension: Code(s): I10 - Essential (primary) hypertension Category: Medical Qualifiers: Hypertension type: secondary to other renal disorders Qualified Code(s): I15.1 - Hypertension secondary to other renal disorders Plan: Controlled on current medications. continue follow up with nephrology Medications: Refilled bupropion HCl XL 150 mg PO DAILY 90 tabs 3RF mycophenolate mofetil 500 mg (2 x 250 mg) PO TID 180 caps 6RF nifedipine ER 30 mg PO DAILY 90 tabs 3RF
[2024-05-14 15:23] VITALS: BP 124/76; PULSE 93; O2SAT 99; BMI 38.4
== END 2024-05-14 15:45 | disposition home or self-care (01) ==
PROVIDERS: PCP Internal Medicine; Visit Provider Internal Medicine
DX: F33.1 Major depressive disorder, recurrent, moderate (principal); I15.1 Hypertension secondary to other renal disorders

== ENCOUNTER → 2024-05-14 15:04 | Outpatient (BNVA) | payer MEDICARE, SELFPAY | PROVIDERS: PCP Internal Medicine; Visit Provider Internal Medicine | DX: F33.1 Major depressive disorder, recurrent, moderate (principal); I15.1 Hypertension secondary to other renal disorders; N18.6 End stage renal disease; Z94.0 Kidney transplant status; Z79.899 Other long term (current) drug therapy | CPT/HCPCS: 99212 ==

== ENCOUNTER 2024-07-03 08:26 | Outpatient (REF) | payer MEDICARE, MEDICAID, SELFPAY ==
[2024-07-03 11:06] LABS: Anion Gap 10 (12-20); Blood Urea Nitrogen 18 mg/dL (9-16); Carbon Dioxide 25 mmol/L (22-29); Chloride 108 mmol/L (96-108); Estimated Glomerular Filt Rate 43; Potassium 3.5 mmol/L (3.3-5.1); Sodium 139 mmol/L (135-145)
[2024-07-04 09:48] LABS: Tacrolimus Prograf 6.1 mcg/L
== END 2024-07-03 08:27 | disposition home or self-care (01) ==
LOC: HO.10HDL 08:26
PROVIDERS: Visit Provider Internal Medicine Nephrology
DX: I15.1 Hypertension secondary to other renal disorders (principal); Z94.0 Kidney transplant status
CPT/HCPCS: 36415; 80051; 80197; 82565; 84520

== ENCOUNTER 2024-07-06 09:48 | Outpatient (AMB) | payer MEDICARE, MEDICAID, SELFPAY ==
--- NOTE | 2024-07-06 10:13 | HO.NEPHOV_ITS ---
Vital Signs 07/06/24 10:15 Height 5 ft 1.42 in Weight 204 lb 6 oz BMI 38.1 BP 124/70 Blood Pressure Location Lt brachial Position Sitting Pulse 95 Pulse Source Pulse Oximeter Pulse Oximetry (%) 98 Oxygen Delivery Method Room Air Intake Visit Reasons: Kidney transplant status/ LVM Legal Activity Adjudicator Required: Yes Legal Activity Adjudicator Language: Training Development Specialist Services: Legal Activity Adjudicator Present Legal Activity Adjudicator Name: Carol [id number] Accompanied by: Child Allergies No Known Allergies Allergy (Verified 07/06/24 10:15) HPI Comments Details: Ms. 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 She was never on dialysis and had a pre-emptive transplant. She had a right upper extremity AV fistula. Her PRA was 87%, EPTS 2% with the donor/recipient HLA MM, A, B, DR 2,2,2. Surgery was performed by Dr. Ugarte, right to right. Her donor KDPI was 40 6%. Donor history unremarkable. CMV donor was negative but recipient positive. EBV donor positive and recipient positive. Induction was done with Thymoglobulin and maintenance treatment had been with prednisone, tacrolimus and mycophenolate. She never had any significant proteinuria with a stable serum creatinine around 1.4. It had gone upto 1.7 which improved to 1.5. She had DSA absent by the last result fax note to me from [place]. Her CMV prophylaxis was completed on 11/20/2021 with a PCP/toxo prophylaxis completed on 02/20/2022. Her BK and CMV PCR was negative on 11/12/22. She has hypertension and is on nifedipine. Her blood pressure is quite well controlled. Her PTH and vitamin-D had been well controlled. She has been taking oral vitamin-D D. Her serum uric acid has been normal. She has moved from [facility] and was seen for transplant renal care. She does not have any chest pain, shortness of breath, paroxysmal nocturnal dyspnea, orthopnea, orthostatic symptoms, pedal edema, skin rashes, joint swellings. She does not take any nonsteroidal anti-inflammatories. She claims to be compliant with her medications. Her tacrolimus dose has been increased to 2 mg bid after last blood work. [facility] Medical History (Updated 03/26/24 @ 14:53 by Cruz New MD) AV fistula Asthma Hypertension Surgical History Status post biopsy of kidney H/O tubal ligation Kidney replaced by transplant Family History Mother HTN (hypertension) Father Diabetes Cardiovascular disease Social History Housing: House Patient Tobacco Use Status: Never used Tobacco e-Cigarette/Vaping Use: Never Used Second Hand Smoke Exposure: No service: No Current occupational status: unemployed Cognitive needs: No Hearing needs: No Vision needs: No Review of Systems Const All systems reviewed & are unremarkable except as noted in HPI and below Physical Exam Vital Signs: Last Vital Signs Pulse 95 07/06/24 10:15 BP 124/70 07/06/24 10:15 Pulse Ox 98 07/06/24 10:15 Oxygen Delivery Method Room Air 07/06/24 10:15 BMI result Body Mass Index 38.1 Const General: comfortable and no acute distress Orientation/consciousness: patient oriented x3 HEENT Head: Yes normocephalic Mouth: Normal oral and palatal mucosa present Eyes EOM: EOMs intact bilaterally Neck Neck: Yes supple Resp Auscultation: clear to auscultation bilaterally Cardio Jugular venous distension: no JVD Rate: regular rate GI Palpation (GI): Soft to palpation Auscultation: normal bowel sounds General: Yes no CVA tenderness Back/Spine/Pelvis Back: no CVA tenderness Skin General skin exam: no rashes or lesions noted Neuro General: patient oriented x3 and moves all extremities Extrem General: Yes no pedal edema Results Reviewed Nephrology Results: Hgb 12.3 g/dl (12.0-16.0) 05/01/24 WBC 6.3 X10*3/uL (4.8-10.8) 05/01/24 Plt Count 264 X10*3/uL (160-400) 05/01/24 Sodium 139 mmol/L (135-145) 07/03/24 Potassium 3.5 mmol/L (3.3-5.1) 07/03/24 Chloride 108 mmol/L (96-108) 07/03/24 Carbon Dioxide 25 mmol/L (22-29) 07/03/24 BUN 18 mg/dL (9-16) H 07/03/24 Creatinine 1.42 mg/dL (0.5-1.4) H 07/03/24 Calcium 9.0 mg/dL (8.4-10.2) 05/01/24 Phosphorus 2.8 mg/dL (2.7-4.5) 05/01/24 Urine Protein Negative mg/dL (Neg-Trace) 05/01/24 Urine Creatinine 159.31 mg/dL 05/01/24 Protein/Creatinin Ratio 0.08 (<0.2) 05/01/24 Assessment & Plan Assessment & Plan (1) Hypertension: Code(s): I10 - Essential (primary) hypertension Category: Medical Qualifiers: Hypertension type: secondary to other renal disorders Qualified Code(s): I15.1 - Hypertension secondary to other renal disorders (2) History of kidney transplant: Code(s): Z94.0 - Kidney transplant status Category: Surgical (3) Immunosuppressed status: Code(s): D84.9 - Immunodeficiency, unspecified Category: Medical Plan Mr. 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 She never was on dialysis even though she had a upper extremity AV fistula. Her baseline serum creatinine has been around 1.4-1.5 which had gone up to 1.7 but back to baseline now. She is not known to have any significant proteinuria. She has no history of DSA positivity, cellular or antibody mediated rejection. She has history of high PRA and has been on tacrolimus and mycophenolate along with prednisone. Her CMV and PCP prophylaxis were completed in 2021. Her blood pressure has been well controlled even after not taking nifedipine for a week. So I held it. He needs to lose weight. She is on oral sodium bicarbonate and magnesium replacement along with a vitamin-D. All these were discussed in detail with an store receiving clerk. All questions answered. Coding Level of Care Code Est Pt Level 4 (70121) Diagnoses Hypertension secondary to other renal disorders I15.1 Hypertension type: secondary to other renal disorders History of kidney transplant Z94.0 Immunosuppressed status D84.9
[2024-07-06 10:15] VITALS: BP 124/70; PULSE 95; O2SAT 98; BMI 38.1
== END 2024-07-06 10:26 | disposition home or self-care (01) ==
PROVIDERS: PCP Internal Medicine; Visit Provider Internal Medicine Nephrology
DX: I15.1 Hypertension secondary to other renal disorders (principal); Z94.0 Kidney transplant status; D84.9 Immunodeficiency, unspecified
CPT/HCPCS: 99214

== ENCOUNTER → 2024-07-06 09:48 | Outpatient (BNVA) | payer MEDICARE, MEDICAID, SELFPAY | PROVIDERS: PCP Internal Medicine; Visit Provider Internal Medicine Nephrology | DX: I15.1 Hypertension secondary to other renal disorders (principal); D84.9 Immunodeficiency, unspecified; Z94.0 Kidney transplant status | CPT/HCPCS: 99212 ==

== ENCOUNTER 2024-08-08 09:56 | Outpatient (AMB) | payer MEDICARE, MEDICAID, SELFPAY ==
--- NOTE | 2024-08-08 10:06 | HO.NEPHOV_ITS ---
Vital Signs 08/08/24 10:08 Height 5 ft 1.42 in Weight 208 lb 6 oz BMI 38.8 BP 110/80 Blood Pressure Location Lt brachial Position Sitting Pulse 93 Pulse Source Pulse Oximeter Pulse Oximetry (%) 99 Oxygen Delivery Method Room Air Intake Visit Reasons: History of kidney transplant-Conf Power Shovel Mechanic Required: Yes Power Shovel Mechanic Language: Radio Survey Worker Services: Power Shovel Mechanic Present Power Shovel Mechanic Name: Georgette [id number] Accompanied by: Mother Allergies No Known Allergies Allergy (Verified 08/08/24 10:08) HPI Comments Details: Ms. 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 She was never on dialysis and had a pre-emptive transplant. She had a right upper extremity AV fistula. Her PRA was 87%, EPTS 2% with the donor/recipient HLA MM, A, B, DR 2,2,2. Surgery was performed by Dr. Ugarte, right to right. Her donor KDPI was 40 6%. Donor history unremarkable. CMV donor was negative but recipient positive. EBV donor positive and recipient positive. Induction was done with Thymoglobulin and maintenance treatment had been with prednisone, tacrolimus and mycophenolate. She never had any significant proteinuria with a stable serum creatinine around 1.4. It had gone upto 1.7 which improved to 1.5. She had DSA absent by the last result fax note to me from [place]. Her CMV prophylaxis was completed on 11/20/2021 with a PCP/toxo prophylaxis completed on 02/20/2022. Her BK and CMV PCR was negative on 11/12/22. She has hypertension and is on nifedipine. Her blood pressure is quite well controlled. Her PTH and vitamin-D had been well controlled. She has been taking oral vitamin-D D. Her serum uric acid has been normal. She has moved from [facility] and was seen for transplant renal care. She does not have any chest pain, shortness of breath, paroxysmal nocturnal dyspnea, orthopnea, orthostatic symptoms, pedal edema, skin rashes, joint swellings. She does not take any nonsteroidal anti-inflammatories. She claims to be compliant with her medications. Her tacrolimus dose has been adjusted after last blood work. [facility] Medical History (Updated 03/26/24 @ 14:53 by Cruz New MD) AV fistula Asthma Hypertension Surgical History Status post biopsy of kidney H/O tubal ligation Kidney replaced by transplant Family History Mother HTN (hypertension) Father Diabetes Cardiovascular disease Social History Housing: House Patient Tobacco Use Status: Never used Tobacco e-Cigarette/Vaping Use: Never Used Second Hand Smoke Exposure: No service: No Current occupational status: unemployed Cognitive needs: No Hearing needs: No Vision needs: No Physical Exam Const General: comfortable and no acute distress Orientation/consciousness: patient oriented x3 HEENT Head: Yes normocephalic Mouth: Normal oral and palatal mucosa present Eyes EOM: EOMs intact bilaterally Neck Neck: Yes supple Resp Auscultation: clear to auscultation bilaterally Cardio Jugular venous distension: no JVD Rate: regular rate GI Palpation (GI): Soft to palpation Auscultation: normal bowel sounds General: Yes no CVA tenderness Back/Spine/Pelvis Back: no CVA tenderness Skin General skin exam: no rashes or lesions noted Neuro General: patient oriented x3 and moves all extremities Extrem General: Yes no pedal edema Results Reviewed Nephrology Results: Hgb 12.3 g/dl (12.0-16.0) 05/01/24 WBC 6.3 X10*3/uL (4.8-10.8) 05/01/24 Plt Count 264 X10*3/uL (160-400) 05/01/24 Sodium 139 mmol/L (135-145) 07/03/24 Potassium 3.5 mmol/L (3.3-5.1) 07/03/24 Chloride 108 mmol/L (96-108) 07/03/24 Carbon Dioxide 25 mmol/L (22-29) 07/03/24 BUN 18 mg/dL (9-16) H 07/03/24 Creatinine 1.42 mg/dL (0.5-1.4) H 07/03/24 Calcium 9.0 mg/dL (8.4-10.2) 05/01/24 Phosphorus 2.8 mg/dL (2.7-4.5) 05/01/24 Urine Protein Negative mg/dL (Neg-Trace) 05/01/24 Urine Creatinine 159.31 mg/dL 05/01/24 Protein/Creatinin Ratio 0.08 (<0.2) 05/01/24 Assessment & Plan Assessment & Plan (1) Hypertension: Code(s): I10 - Essential (primary) hypertension Category: Medical Qualifiers: Hypertension type: secondary to other renal disorders Qualified Code(s): I15.1 - Hypertension secondary to other renal disorders (2) Immunosuppressed status: Code(s): D84.9 - Immunodeficiency, unspecified Category: Medical (3) History of kidney transplant: Code(s): Z94.0 - Kidney transplant status Category: Surgical Plan Mr. 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 She never was on dialysis even though she had a upper extremity AV fistula. Her baseline serum creatinine has been around 1.4-1.5 which had gone up to 1.7 but back to baseline now. She is not known to have any significant proteinuria. She has no history of DSA positivity, cellular or antibody mediated rejection. She has history of high PRA and has been on tacrolimus and mycophenolate along with prednisone. Her CMV and PCP prophylaxis were completed in 2021. Her blood pressure has been well controlled. He needs to lose weight. She is on oral sodium bicarbonate and magnesium replacement along with a vitamin-D. All these were discussed in detail with an translator and interpreter. All questions answered. Orders: Orders Creatinine 2 Months D84.9 - Immunodeficiency, unspecified, I15.1 - Hypertension secondary to other renal disorders, Z94.0 - Kidney transplant status Magnesium 2 Months D84.9 - Immunodeficiency, unspecified, I15.1 - Hypertension secondary to other renal disorders, Z94.0 - Kidney transplant status Phosphorus 2 Months D84.9 - Immunodeficiency, unspecified, I15.1 - Hypertension secondary to other renal disorders, Z94.0 - Kidney transplant status Alanine Aminotransferase 2 Months D84.9 - Immunodeficiency, unspecified, I15.1 - Hypertension secondary to other renal disorders, Z94.0 - Kidney transplant status Aspartate Amino Transferase 2 Months D84.9 - Immunodeficiency, unspecified, I15.1 - Hypertension secondary to other renal disorders, Z94.0 - Kidney transplant status Tacrolimus Prograf 2 Months D84.9 - Immunodeficiency, unspecified, I15.1 - Hypertension secondary to other renal disorders, Z94.0 - Kidney transplant status Complete Blood Count Auto Diff 2 Months D84.9 - Immunodeficiency, unspecified, I15.1 - Hypertension secondary to other renal disorders, Z94.0 - Kidney transplant status Blood Urea Nitrogen 2 Months D84.9 - Immunodeficiency, unspecified, I15.1 - Hypertension secondary to other renal disorders, Z94.0 - Kidney transplant status Electrolytes 2 Months D84.9 - Immunodeficiency, unspecified, I15.1 - Hypertension secondary to other renal disorders, Z94.0 - Kidney transplant status Calcium 2 Months D84.9 - Immunodeficiency, unspecified, I15.1 - Hypertension secondary to other renal disorders, Z94.0 - Kidney transplant status Medications: Discontinued nifedipine ER Discontinued Reason: Doctor's Order 30 mg PO DAILY 90 tabs 3RF Coding Level of Care Code Est Pt Level 4 (43415) Diagnoses Hypertension secondary to other renal disorders I15.1 Hypertension type: secondary to other renal disorders Immunosuppressed status D84.9 History of kidney transplant Z94.0
[2024-08-08 10:08] VITALS: BP 110/80; PULSE 93; O2SAT 99; BMI 38.8
== END 2024-08-08 10:20 | disposition home or self-care (01) ==
LOC: HO.HKA 09:56
PROVIDERS: PCP Internal Medicine; Visit Provider Internal Medicine Nephrology
DX: I15.1 Hypertension secondary to other renal disorders (principal); D84.9 Immunodeficiency, unspecified; Z94.0 Kidney transplant status
CPT/HCPCS: 99214

== ENCOUNTER → 2024-08-08 09:56 | Outpatient (BNVA) | payer MEDICARE, MEDICAID, SELFPAY | PROVIDERS: PCP Internal Medicine; Visit Provider Internal Medicine Nephrology | DX: I15.1 Hypertension secondary to other renal disorders (principal); D84.9 Immunodeficiency, unspecified; Z94.0 Kidney transplant status | CPT/HCPCS: 99212 ==

== ENCOUNTER 2024-10-05 09:08 | Outpatient (REF) | payer MEDICARE, MEDICAID, SELFPAY ==
[2024-10-05 10:07] LABS: MANUAL DIFF FLAG NO
[2024-10-05 10:27] LABS: Basophils Absolute Auto 0.1 X10*3/uL (0.0-0.2); Basophils Percent Auto 0.9 % (0-2); Eosinophils Absolute Auto 0.1 X10*3/uL (0.0-0.4); Eosinophils Percent Auto 1.3 % (0-4); Hematocrit 35.7 % (37.0-47.0); Hemoglobin 10.9 g/dl (12.0-16.0); Imm Gran Abs Auto 0.02 X10*3/uL (0.00-0.03); Imm Gran Pct Auto 0.3 % (0.0-0.4); Lymphocytes Absolute Auto 1.6 X10*3/uL (1.2-4.9); Mean Corpuscular HGB Conc 30.5 g/dl (31.0-35.0); Mean Corpuscular Hemoglobin 25.7 pg (27.0-33.0); Mean Corpuscular Volume 84.2 fL (80.0-98.0); Mean Platelet Volume 11.3 fL (9.4-12.3); Monocytes Absolute Auto 0.5 X10*3/uL (0.1-1.2); Monocytes Percent Auto 7.5 % (2-11); Neutrophils Absolute Auto 4.6 x10*3/uL (2.0-8.3); Platelet Count 273 X10*3/uL (160-400); Red Blood Count 4.24 X10*6/uL (4.20-5.50); Red Cell Distribution Width 13.2 % (11.0-16.0); White Blood Count 6.9 X10*3/uL (4.8-10.8)
[2024-10-05 10:52] LABS: Alanine Aminotransferase 15 U/L (0-31); Anion Gap 11 (12-20); Aspartate Amino Transferase 16 U/L (5-31); Blood Urea Nitrogen 23 mg/dL (9-16); Calcium 8.7 mg/dL (8.4-10.2); Carbon Dioxide 21 mmol/L (22-29); Chloride 111 mmol/L (96-108); Estimated Glomerular Filt Rate 34; Magnesium 1.5 mg/dL (1.6-2.6); Phosphorus 2.7 mg/dL (2.7-4.5); Potassium 3.4 mmol/L (3.3-5.1); Sodium 140 mmol/L (135-145)
[2024-10-06 10:19] LABS: Tacrolimus Prograf 9.1 mcg/L
== END 2024-10-05 09:09 | disposition home or self-care (01) ==
LOC: HO.10HDL 09:08
PROVIDERS: Visit Provider Internal Medicine Nephrology
DX: I15.1 Hypertension secondary to other renal disorders (principal); D84.9 Immunodeficiency, unspecified; Z94.0 Kidney transplant status
CPT/HCPCS: 36415; 80051; 80197; 82310; 82565; 83735; 84100; 84450; 84460; 84520; 85025

== ENCOUNTER 2024-10-10 11:22 | Outpatient (AMB) | payer MEDICARE, MEDICAID, SELFPAY ==
--- NOTE | 2024-10-10 11:36 | HO.NEPHOV_ITS ---
Vital Signs 10/10/24 11:39 Height 5 ft 1.42 in Weight 208 lb 8 oz BMI 38.9 BP 126/70 Blood Pressure Location Lt brachial Position Sitting Pulse 95 Pulse Source Pulse Oximeter Pulse Oximetry (%) 99 Oxygen Delivery Method Room Air Intake Visit Reasons: 2mon follow-up w/labs-LVM Contract Forester Required: Yes Contract Forester Language: Forensic Locksmith Services: Contract Forester Present Contract Forester Name: Pasquale [id number] Information Interpreted: clinical only Accompanied by: Son Allergies No Known Allergies Allergy (Verified 10/10/24 11:39) HPI Comments Details: Ms. 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 She was never on dialysis and had a pre-emptive transplant. She had a right upper extremity AV fistula. Her PRA was 87%, EPTS 2% with the donor/recipient HLA MM, A, B, DR 2,2,2. Surgery was performed by Dr. Ugarte, right to right. Her donor KDPI was 40 6%. Donor history unremarkable. CMV donor was negative but recipient positive. EBV donor positive and recipient positive. Induction was done with Thymoglobulin and maintenance treatment had been with prednisone, tacrolimus and mycophenolate. She never had any significant proteinuria with a stable serum creatinine around 1.4. It had gone upto 1.7 which improved to 1.5. She had DSA absent by the last result fax note to me from [place]. Her CMV prophylaxis was completed on 11/20/2021 with a PCP/toxo prophylaxis completed on 02/20/2022. Her BK and CMV PCR was negative on 11/12/22. She has hypertension and is on nifedipine. Her blood pressure is quite well controlled. Her PTH and vitamin-D had been well controlled. She has been taking oral vitamin-D D. Her serum uric acid has been normal. She has moved from [facility] and was seen for transplant renal care. She does not have any chest pain, shortness of breath, paroxysmal nocturnal dyspnea, orthopnea, orthostatic symptoms, pedal edema, skin rashes, joint swellings. She does not take any nonsteroidal anti-inflammatories. She claims to be compliant with her medications. She wants her AVF to be ligated COUNT INCLUDES THE [facility] Medical History (Updated 10/10/24 @ 22:08 by Cruz New MD) AV fistula Asthma Hypertension Surgical History Status post biopsy of kidney H/O tubal ligation Kidney replaced by transplant Family History Mother HTN (hypertension) Father Diabetes Cardiovascular disease Social History Housing: House Patient Tobacco Use Status: Never used Tobacco e-Cigarette/Vaping Use: Never Used Second Hand Smoke Exposure: No service: No Current occupational status: unemployed Cognitive needs: No Hearing needs: No Vision needs: No Review of Systems Const All systems reviewed & are unremarkable except as noted in HPI and below Physical Exam Vital Signs: Last Vital Signs Pulse 95 10/10/24 11:39 BP 126/70 10/10/24 11:39 Pulse Ox 99 10/10/24 11:39 Oxygen Delivery Method Room Air 10/10/24 11:39 BMI result Body Mass Index 38.9 Const General: comfortable and no acute distress Orientation/consciousness: patient oriented x3 HEENT Head: Yes normocephalic Mouth: Normal oral and palatal mucosa present Eyes EOM: EOMs intact bilaterally Neck Neck: Yes supple Resp Auscultation: clear to auscultation bilaterally Cardio Jugular venous distension: no JVD Rate: regular rate GI Palpation (GI): Soft to palpation Auscultation: normal bowel sounds General: Yes no CVA tenderness Back/Spine/Pelvis Back: no CVA tenderness Skin General skin exam: no rashes or lesions noted Neuro General: patient oriented x3 and moves all extremities Extrem General: Yes no pedal edema Results Reviewed Nephrology Results: Hgb 10.9 g/dl (12.0-16.0) L 10/05/24 WBC 6.9 X10*3/uL (4.8-10.8) 10/05/24 Plt Count 273 X10*3/uL (160-400) 10/05/24 Sodium 140 mmol/L (135-145) 10/05/24 Potassium 3.4 mmol/L (3.3-5.1) 10/05/24 Chloride 111 mmol/L (96-108) H 10/05/24 Carbon Dioxide 21 mmol/L (22-29) L 10/05/24 BUN 23 mg/dL (9-16) H 10/05/24 Creatinine 1.74 mg/dL (0.5-1.4) H 10/05/24 Calcium 8.7 mg/dL (8.4-10.2) 10/05/24 Phosphorus 2.7 mg/dL (2.7-4.5) 10/05/24 Urine Protein Negative mg/dL (Neg-Trace) 05/01/24 Urine Creatinine 159.31 mg/dL 05/01/24 Protein/Creatinin Ratio 0.08 (<0.2) 05/01/24 Assessment & Plan Assessment & Plan (1) History of kidney transplant: Code(s): Z94.0 - Kidney transplant status Category: Surgical (2) Hypertension: Code(s): I10 - Essential (primary) hypertension Category: Medical Qualifiers: Hypertension type: secondary to other renal disorders Qualified Code(s): I15.1 - Hypertension secondary to other renal disorders (3) AV fistula: Code(s): I77.0 - Arteriovenous fistula, acquired Category: Medical Plan Mr. 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 She never was on dialysis even though she had a upper extremity AV fistula. Her baseline serum creatinine has been around 1.4-1.5 which had gone up to 1.7 now. She is not known to have any significant proteinuria. She has no history of DSA positivity, cellular or antibody mediated rejection. She has history of high PRA and has been on tacrolimus and mycophenolate along with prednisone. Her CMV and PCP prophylaxis were completed in 2021. Her blood pressure has been well controlled. He needs to lose weight. She is on oral sodium bicarbonate and magnesium replacement along with a vitamin-D. She may be a candidate for SGLT2 i. I have ordered a vascular consult for AVF evaluation for ligation. All these were discussed in detail with an heat treat technician. All questions answered Orders: Orders Tacrolimus Prograf 2 Months Z94.0 - Kidney transplant status Complete Blood Count Auto Diff 2 Months Z94.0 - Kidney transplant status Creatinine 2 Months Z94.0 - Kidney transplant status Blood Urea Nitrogen 2 Months Z94.0 - Kidney transplant status Electrolytes 2 Months Z94.0 - Kidney transplant status Calcium 2 Months Z94.0 - Kidney transplant status Phosphorus 2 Months Z94.0 - Kidney transplant status Aspartate Amino Transferase 2 Months Z94.0 - Kidney transplant status Tacrolimus Prograf 1 Month Z94.0 - Kidney transplant status Blood Urea Nitrogen 1 Month Z94.0 - Kidney transplant status Magnesium 2 Months Z94.0 - Kidney transplant status Alanine Aminotransferase 2 Months Z94.0 - Kidney transplant status Electrolytes 1 Month Z94.0 - Kidney transplant status Creatinine 1 Month Z94.0 - Kidney transplant status Referrals Vascular Surgery Referral I77.0 - Arteriovenous fistula, acquired Medications: Changed From tacrolimus 2 mg (2 x 1 mg) PO BID 90 days 360 caps 3RF To tacrolimus (3 x 1 mg) 3 mg orally take 2 mg AM and 1 mg PM; 90 days 270 caps 3RF Coding Level of Care Code Est Pt Level 4 (93700) Diagnoses History of kidney transplant Z94.0 Hypertension secondary to other renal disorders I15.1 Hypertension type: secondary to other renal disorders AV fistula I77.0
[2024-10-10 11:39] VITALS: BP 126/70; PULSE 95; O2SAT 99; BMI 38.9
== END 2024-10-10 12:25 | disposition home or self-care (01) ==
LOC: HO.HKA 11:23
PROVIDERS: PCP Internal Medicine; Visit Provider Internal Medicine Nephrology
DX: Z94.0 Kidney transplant status (principal); I15.1 Hypertension secondary to other renal disorders; I77.0 Arteriovenous fistula, acquired
CPT/HCPCS: 99214

== ENCOUNTER → 2024-10-10 11:22 | Outpatient (BNVA) | payer MEDICARE, MEDICAID, SELFPAY | PROVIDERS: PCP Internal Medicine; Visit Provider Internal Medicine Nephrology | DX: I15.1 Hypertension secondary to other renal disorders (principal); I77.0 Arteriovenous fistula, acquired; Z94.0 Kidney transplant status; Z79.899 Other long term (current) drug therapy | CPT/HCPCS: 99212 ==

== ENCOUNTER 2024-10-24 10:24 | Outpatient (AMB) | payer MEDICARE, MEDICAID, SELFPAY ==
--- NOTE | 2024-10-24 10:32 | A.OFFPC_ITS ---
Vital Signs 10/24/24 10:38 Height 5 ft 1.42 in Weight 212 lb 6 oz BMI 39.6 BP 136/86 Blood Pressure Location Rt brachial Position Sitting Respiration 14 Pulse 92 Pulse Source Pulse Oximeter Pulse Oximetry (%) 99 Oxygen Delivery Method Room Air Intake Visit Reasons: Physical / Dr. Bruce pt. Intake Note: Physical Librarian Special Library Required: Yes Librarian Special Library Language: Car Inspector Name: Ryne [id number] Allergies No Known Allergies Allergy (Verified 10/24/24 10:34) Tobacco use date assessed: 10/24/24 Dental Screening Dental Screen Date: 10/24/24 Did you have a dental visit in the last 12 months?: No Did you have a dental problem in the last 6 months where you did not have access to dental care?: No Was dental information given to patient?: Patient declined HPI Physical / Dr. Craig's pt. HPI Details Patient is a 34-year-old female who presents today for a physical exam. She has a significant past medical history of hypertension, av fistula, kidney transplant and depression. She normally follows with Dr. Craig. Librarian Special Library: Ryne Derm: She does request a referral to derm for alopecia and hair thinning. She says that she has a history of this in the past was given a topical that was somewhat helpful. She is noticing a small, circular bald patch noted above her left ear. The skin is not tender or irritated. She also has noticed generalized hair thinning. Psych: Was previously on sertraline but feels better with the bupropion 150 mg daily. We did discuss that she does have a high PHQ-9 score but she states that she is overall well-controlled with the bupropion. She does not wish to make any adjustments. Nephro: Being followed by Nephrology and is on tacrolimus, prednisone. She is being managed with magnesium and sodium bicarb. Blood pressures have been well- controlled and she is maintained on furosemide 20 mg daily. [place] Counselor: overdue. needs referral [facility] Medical History (Updated 10/24/24 @ 10:45 by Olive Lpoez PA-C) AV fistula Asthma Hypertension Surgical History Status post biopsy of kidney H/O tubal ligation Kidney replaced by transplant Family History Mother HTN (hypertension) Father Diabetes Cardiovascular disease Social History Housing: House Patient Tobacco Use Status: Never used Tobacco e-Cigarette/Vaping Use: Never Used Second Hand Smoke Exposure: No service: No Current occupational status: unemployed Cognitive needs: No Hearing needs: No Vision needs: No Questionnaire PHQ-9 Over the last 2 weeks, how often have you been bothered by any of the following problems? 1. Little interest or pleasure in doing things: several days 2. Feeling down, depressed, or hopeless: several days 3. Trouble falling or staying asleep, or sleeping too much: several days 4. Feeling tired or having little energy: several days 5. Poor appetite or overeating: several days 6. Feeling bad about yourself - or that you are a failure or have let yourself or your family down: not at all 7. Trouble concentrating on things, such as reading the newspaper or watching television: several days 8. Moving or speaking so slowly that other people could have noticed. Or the opposite - being so fidgety or restless that you have been moving around a lot m ore than usual: not at all 9. Thoughts that you would be better off or of hurting yourself in some way: not at all Total score: 6 Depression Screening Interpretation: Positive Depression Screening Follow-up: Existing condition, In treatment, Change in Medication and Follow-up Visit Requested Depression Screening Done: Yes 47826 - PHQ-9 Billing: Yes Source: Developed by Drs. Nader Sahu, Dona Cruz, New Parnell and colleagues, with an educational jeremiah from [employer]. Thrive Questionnaire Date Thrive assessed: 10/23/24 I am a: Patient What is your living situation today?: I do not have a steady places to live I choose not to answer this question Within the past 12 months, did the food you bought not last and you didn't have the money to get more?: Often true Within the past 12 months, did you worry whether your food would run out before you got money to buy more?: Often true Do you have trouble paying for medicines?: No Do you have trouble getting transportation to medical appointments?: No Do you have trouble paying your heating and electricity bill?: I choose not to answer this question Do you have trouble taking care of your child, family member or friend?: No Do you have trouble with day-to-day activities such as bathing, preparing meals, shopping, managing finances, etc.?: No Are you currently unemployed and looking for a job?: Yes Are you interested in more education?: Yes Please select the resources that you would like help with: Utilities and Job search/training Currently or been in a relationship where the following occur: I choose not to answer THRIVE Score: 3 AUDIT C Alcohol Use Questionnaire (AUDIT-C) 1. How often do you have a drink containing alcohol?: Never 3. How often do you have six or more drinks on one occasion?: Never Total Score: 0 PEDRO-7 AMB Questionnaire PEDRO-7 Feeling nervous, anxious, or on edge: 3 = Nearly every day Not being able to stop or control worryin = Nearly every day Worrying too much about different things: 3 = Nearly every day Trouble relaxin = More than half the days Being so restless that it is hard to sit still: 1 = Several days Becoming easily annoyed or irritable: 1 = Several days Feeling afraid as if something awful might happen: 3 = Nearly every day Total PEDRO-7 score (0-4 normal; 5-9 mild; 10-14 moderate; 15-21 severe): 16 Source: Developed by Drs. Nader Sahu, Dona Cruz, New Parnell and colleagues, with an educational jeremiah from [employer]. PEDRO-7 Assessment Billing PEDRO-7 Assessment Tool: PEDRO-7 Assessment 23143 Physical exam (Primary Care) Tobacco/Smoking Status: Tobacco use Status Tobacco use date assessed 11/01/23 05/14/24 15:20 Patient Tobacco Use Status Never used Tobacco 05/14/24 15:20 e-Cigarette/Vaping Use Never Used 05/14/24 15:20 Depression Screening Interpretation: Positive Depression Screening Follow-up: Existing condition, In treatment, Change in Medication and Follow-up Visit Req uested Thrive Assessment: Date of Thrive Assessment Date Thrive assessed 10/23/24 10/23/24 19:11 Currently or been in a relationship where the following occur: I choose not to answer Const Orientation/consciousness: patient oriented x3 HENMT Ears: hearing grossly normal bilaterally and TM's normal bilaterally General nose exam: No nasal polyps present Face and sinus: Yes sinuses nontender Mouth: Normal oral and palatal mucosa present Eyes Pupils: Equal, round and reactive pupils present EOM: EOMs intact bilaterally Neck Neck: Yes full ROM and Yes no lymphadenopathy Thyroid: Thyroid normal Chest Chest palpation & inspection: normal inspection of the chest Resp Auscultation: clear to auscultation bilaterally Cardio Rate: regular rate Rhythm: regular rhythm Heart sounds: S1 normal heart sound present and S2 normal heart sound present GI Other: Soft, nontender Auscultation: normal bowel sounds Rectal Exam - Female: deferred General: Yes no CVA tenderness Back/Spine/Pelvis Other: Nontender Back: no CVA tenderness Skin Other: Hair thinning noted throughout the frontal part of the scalp. There is a small, dime-sized area of balding noted on the left temporal side of the scalp. The skin is smooth. General skin exam: no rashes or lesions noted Neuro General: patient oriented x3, gait normal, CN's II-XI intact bilaterally and deep tendon reflexes 2+ bilaterally Cranial nerves: Yes Equal, round and reactive pupils present Motor exam (neuro): 5/5 motor strength present throughout Sensory Exam: double simultaneous stimulation for sensation normal Coordination: [id number] test normal and Romberg test negative Extrem Other: Fistula noted on right upper extremity General: Yes normal to inspection and Yes full ROM Psych Affect: normal affect Attitude: cooperative Thought process: Normal thought process present Thought content: Normal thought content present Insight: Good insight present (Psych) Judgement: Good judgement present (Psych) Results Reviewed Results Reviewed: Laboratory Tests 03/02/24 10/05/24 16:08 09:15 WBC 6.9 RBC 4.24 Hgb 10.9 L Hct 35.7 L Plt Count 273 Sodium 140 Creatinine 1.74 H Estimated GFR 34 Random Glucose 94 Coding Level of Care Code Est Pt Prev Care 18-39y(15206) Diagnoses Encounter for routine history and physical examination Z00.00 Moderate episode of recurrent major depressive disorder F33.1 Major depression episode severity: moderate Hypertension secondary to other renal disorders I15.1 Hypertension type: secondary to other renal disorders AV fistula I77.0 Class 2 severe obesity due to excess calories with serious comorbidity and body mass index (BMI) of 38.0 to 38.9 in adult E66.812; E66.01; Z68.38 Obesity type: due to excess calories Hair thinning L65.9 Additional Codes PHQ-9 - 32805 - PHQ-9 Billing: Yes ([id number]) PEDRO-7 Assessment Billing - PEDRO-7 Assessment Tool: PEDRO-7 Assessment 14531 ([id number]) Assessment & Plan Assessment & Plan (1) Encounter for routine history and physical examination: Code(s): Z00.00 - Encounter for general adult medical examination without abnormal findings Plan: Health maintenance reviewed. lipids and tsh ordered referral to real time analyst (2) Major depressive disorder, recurrent episode: Code(s): F33.9 - Major depressive disorder, recurrent, unspecified Category: Medical Qualifiers: Major depression episode severity: moderate Qualified Code(s): F33.1 - Major depressive disorder, recurrent, moderate Plan: feels overall stable and well controlled will not adjust rx today (3) Hypertension: Code(s): I10 - Essential (primary) hypertension Category: Medical Qualifiers: Hypertension type: secondary to other renal disorders Qualified Code(s): I15.1 - Hypertension secondary to other renal disorders Plan: WNL. Continue regimen (4) AV fistula: Code(s): I77.0 - Arteriovenous fistula, acquired Category: Medical Plan: Has been referred to vascular surgery by Nephrology (5) Class 2 severe obesity with serious comorbidity and body mass index (BMI) of 38.0 to 38.9 in adult: Code(s): E66.812 - Obesity, class 2; E66.01 - Morbid (severe) obesity due to excess calories; Z68.38 - Body mass index [BMI] 38.0-38.9, adult Category: Medical Qualifiers: Obesity type: due to excess calories Qualified Code(s): E66.812 - Obesity, class 2; E66.01 - Morbid (severe) obesity due to excess calories; Z68.38 - Body mass index [BMI] 38.0-38.9, adult Plan: Discussed diet and lifestyle modifications. Advised to reduce carbohydrate and sugar intake. Encouraged increased physical activity. (6) Hair thinning: Code(s): L65.9 - Nonscarring hair loss, unspecified Category: Medical Plan: Referral to derm. Orders: Orders TSH reflex Free T4 Today F33.1 - Major depressive disorder, recurrent, moderate, I15.1 - Hypertension secondary to other renal disorders, I77.0 - Arteriovenous fistula, acquired, Z00.00 - Encounter for general adult medical e xamination without abnormal findings Lipid Panel Today F33.1 - Major depressive disorder, recurrent, moderate, I15.1 - Hypertension secondary to other renal disorders, I77.0 - Arteriovenous fistula, acquired, Z00.00 - Encounter for general adult medical examination without abnormal findings Referrals Dermatology Referral L65.9 - Nonscarring hair loss, unspecified MEDIA MANAGER Referral Z01.419 - Encounter for gynecological examination (general) (routine) without abnormal findings
[2024-10-24 10:38] VITALS: BP 136/86; PULSE 92; RESP 14; O2SAT 99; BMI 39.6
== END 2024-10-24 10:57 | disposition home or self-care (01) ==
LOC: HO.HMCFM 10:25
PROVIDERS: PCP Internal Medicine; Visit Provider Physician Assistant
DX: Z00.00 Encounter for general adult medical examination without abnormal findings (principal); F33.1 Major depressive disorder, recurrent, moderate; E66.01 Morbid (severe) obesity due to excess calories; Z68.38 Body mass index [BMI] 38.0-38.9, adult; I15.1 Hypertension secondary to other renal disorders; I77.0 Arteriovenous fistula, acquired; L65.9 Nonscarring hair loss, unspecified

== ENCOUNTER → 2024-10-24 10:24 | Outpatient (BNVA) | payer MEDICARE, MEDICAID, SELFPAY | PROVIDERS: PCP Internal Medicine; Visit Provider Physician Assistant | DX: Z00.00 Encounter for general adult medical examination without abnormal findings (principal); F33.1 Major depressive disorder, recurrent, moderate; I15.1 Hypertension secondary to other renal disorders; I77.0 Arteriovenous fistula, acquired; E66.812 Obesity, class 2; E66.01 Morbid (severe) obesity due to excess calories; Z68.38 Body mass index [BMI] 38.0-38.9, adult; L65.9 Nonscarring hair loss, unspecified | CPT/HCPCS: 96127; 99395 ==

== ENCOUNTER 2024-12-10 08:53 | Outpatient (REF) | payer MEDICARE, MEDICAID, SELFPAY ==
[2024-12-10 10:11] LABS: MANUAL DIFF FLAG NO
[2024-12-10 10:22] LABS: Hematocrit 34.1 % (37.0-47.0); Hemoglobin 10.5 g/dl (12.0-16.0); Imm Gran Abs Auto 0.04 X10*3/uL (0.00-0.03); Imm Gran Pct Auto 0.4 % (0.0-0.4); Lymphocytes Absolute Auto 2.4 X10*3/uL (1.2-4.9); Mean Corpuscular HGB Conc 30.8 g/dl (31.0-35.0); Mean Corpuscular Hemoglobin 25.2 pg (27.0-33.0); Mean Corpuscular Volume 81.8 fL (80.0-98.0); NRBC Abs Auto 0.000 X10*3/uL (0.0-0.012); NRBC Pct Auto 0.0 /100WBC (0.0-0.2); Platelet Count 294 X10*3/uL (160-400); Red Blood Count 4.17 X10*6/uL (4.20-5.50); White Blood Count 9.2 X10*3/uL (4.8-10.8)
[2024-12-10 10:40] LABS: Alanine Aminotransferase 12 U/L (0-31); Anion Gap 11 (12-20); Aspartate Amino Transferase 17 U/L (5-31); Blood Urea Nitrogen 24 mg/dL (9-16); Calcium 8.5 mg/dL (8.4-10.2); Carbon Dioxide 21 mmol/L (22-29); Chloride 112 mmol/L (96-108); Estimated Glomerular Filt Rate 35; Magnesium 1.6 mg/dL (1.6-2.6); Potassium 3.5 mmol/L (3.3-5.1); Sodium 140 mmol/L (135-145)
[2024-12-11 13:23] LABS: Tacrolimus Prograf 6.5 mcg/L
== END 2024-12-10 08:54 | disposition home or self-care (01) ==
LOC: HO.10HDL 08:53
PROVIDERS: Visit Provider Internal Medicine Nephrology
DX: Z51.81 Encounter for therapeutic drug level monitoring (principal); Z79.621 Long term (current) use of calcineurin inhibitor; Z94.0 Kidney transplant status
CPT/HCPCS: 36415; 80051; 80197; 82310; 82565; 83735; 84100; 84450; 84460; 84520; 85025

== ENCOUNTER 2025-02-06 11:18 | Outpatient (AMB) | payer MEDICARE, MEDICAID, SELFPAY ==
--- NOTE | 2025-02-06 11:22 | HO.NEPHOV_ITS ---
Vital Signs 02/06/25 11:23 Height 5 ft 1.42 in Weight 215 lb 2 oz BMI 40.1 BP 130/90 H Blood Pressure Location Lt brachial Position Sitting Pulse 102 H Pulse Source Pulse Oximeter Pulse Oximetry (%) 98 Oxygen Delivery Method Room Air Intake Visit Reasons: R/S 12/12/2024 Process Technician Required: Yes Process Technician Language: Director Of Financial Reporting Services: Process Technician Present Process Technician Name: Oneil [id number] Information Interpreted: clinical only Accompanied by: Self / Same As Patient Allergies No Known Allergies Allergy (Verified 02/06/25 11:23) HPI Comments Details: Ms. 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 She was never on dialysis and had a pre-emptive transp lant. She had a right upper extremity AV fistula. Her PRA was 87%, EPTS 2% with the donor/recipient HLA MM, A, B, DR 2,2,2. Surgery was performed by Dr. Ugarte, right to right. Her donor KDPI was 40 6%. Donor history unremarkable. CMV donor was negative but recipient positive. EBV donor positive and recipient positive. Induction was done with Thymoglobulin and maintenance treatment had been with prednisone, tacrolimus and mycophenolate. She never had any significant proteinuria with a stable serum creatinine around 1.4. It had gone upto 1.7 which improved to 1.5. She had DSA absent by the last result fax note to me from [place]. Her CMV prophylaxis was completed on 11/20/2021 with a PCP/toxo prophylaxis completed on 02/20/2022. Her BK and CMV PCR was negative on 11/12/22. She has hypertension and is on nifedipine. Her blood pressure is quite well controlled. Her PTH and vitamin-D had been well controlled. She has been taking oral vitamin-D D. Her serum uric acid has been normal. She has moved from [facility] and was seen for transplant renal care. She does not have any chest pain, shortness of breath, paroxysmal nocturnal dyspnea, orthopnea, orthostatic symptoms, pedal edema, skin rashes, joint swellings. She does not take any nonsteroidal anti-inflammatories. She claims to be compliant with her medications. She wants her AVF to be ligated [facility] Medical History (Updated 10/24/24 @ 10:45 by Olive Lopez PA-C) AV fistula Asthma Hypertension Surgical History Status post biopsy of kidney H/O tubal ligation Kidney replaced by transplant Family History Mother HTN (hypertension) Father Diabetes Cardiovascular disease Social History Housing: House Patient Tobacco Use Status: Never used Tobacco e-Cigarette/Vaping Use: Never Used Second Hand Smoke Exposure: No service: No Current occupational status: unemployed Cognitive needs: No Hearing needs: No Vision needs: No Review of Systems Const All systems reviewed & are unremarkable except as noted in HPI and below Physical Exam Vital Signs: Last Vital Signs Pulse 102 H 02/06/25 11:23 BP 130/90 H 02/06/25 11:23 Pulse Ox 98 02/06/25 11:23 Oxygen Delivery Method Room Air 02/06/25 11:23 BMI result Body Mass Index 40.1 Const General: comfortable and no acute distress Orientation/consciousness: patient oriented x3 HEENT Head: Yes normocephalic Mouth: Normal oral and palatal mucosa present Eyes EOM: EOMs intact bilaterally Neck Neck: Yes supple Resp Auscultation: clear to auscultation bilaterally Cardio Jugular venous distension: no JVD Rate: regular rate GI Palpation (GI): Soft to palpation Auscultation: normal bowel sounds General: Yes no CVA tenderness Back/Spine/Pelvis Back: no CVA tenderness Skin General skin exam: no rashes or lesions noted Neuro General: patient oriented x3 and moves all extremities Extrem General: Yes no pedal edema Results Reviewed Nephrology Results: Hgb, (12.0-16.0) 10.5 g/dl L 12/10/24 WBC, (4.8-10.8) 9.2 X10*3/uL 12/10/24 Plt Count, (160-400) 294 X10*3/uL 12/10/24 Sodium, (135-145) 140 mmol/L 12/10/24 Potassium, (3.3-5.1) 3.5 mmol/L 12/10/24 Chloride, (96-108) 112 mmol/L H 12/10/24 Carbon Dioxide, (22-29) 21 mmol/L L 12/10/24 BUN, (9-16) 24 mg/dL H 12/10/24 Creatinine, (0.5-1.4) 1.68 mg/dL H 12/10/24 Calcium, (8.4-10.2) 8.5 mg/dL 12/10/24 Phosphorus, (2.7-4.5) 3.6 mg/dL 12/10/24 Assessment & Plan Assessment & Plan (1) Hypertension: Code(s): I10 - Essential (primary) hypertension Category: Medical Qualifiers: Hypertension type: secondary to other renal disorders Qualified Code(s): I15.1 - Hypertension secondary to other renal disorders (2) History of kidney transplant: Code(s): Z94.0 - Kidney transplant status Category: Surgical Plan Mr. 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 She never was on dialysis even though she had a upper extremity AV fistula. Her baseline serum creatinine has been around 1.4-1.5 which had gone up to 1.7 now. She is not known to have any significant proteinuria. She has no history of DSA positivity, cellular or antibody mediated rejection. She has history of high PRA and has been on tacrolimus and mycophenolate along with prednisone. Her CMV and PCP prophylaxis were completed in 2021. Her blood pressure has been well controlled. He needs to lose weight. She is on oral sodium bicarbonate and magnesium replacement along with a vitamin-D. She may be a candidate for SGLT2 i. I have ordered a vascular consult for AVF evaluation for ligation. All these were discussed in detail with an drywall installer. All questions answered Orders: Orders Tacrolimus Prograf 2 Months I15.1 - Hypertension secondary to other renal disorders, Z94.0 - Kidney transplant status Blood Urea Nitrogen 2 Months I15.1 - Hypertension secondary to other renal dis orders, Z94.0 - Kidney transplant status Creatinine 2 Months I15.1 - Hypertension secondary to other renal disorders, Z94.0 - Kidney transplant status Phosphorus 2 Months I15.1 - Hypertension secondary to other renal disorders, Z94.0 - Kidney transplant status Protein Creatinine Ratio, Ur 2 Months I15.1 - Hypertension secondary to other renal disorders, Z94.0 - Kidney transplant status Vitamin D 25-OH Total 2 Months I15.1 - Hypertension secondary to other renal disorders, Z94.0 - Kidney transplant status Electrolytes Today I15.1 - Hypertension secondary to other renal disorders, Z94.0 - Kidney transplant status Blood Urea Nitrogen Today I15.1 - Hypertension secondary to other renal disorders, Z94.0 - Kidney transplant status Alanine Aminotransferase Today I15.1 - Hypertension secondary to other renal disorders, Z94.0 - Kidney transplant status Aspartate Amino Transferase Today I15.1 - Hypertension secondary to other renal disorders, Z94.0 - Kidney transplant status Protein Creatinine Ratio, Ur Today I15.1 - Hypertension secondary to other renal disorders, Z94.0 - Kidney transplant status Calcium 2 Months I15.1 - Hypertension secondary to other renal disorders, Z94.0 - Kidney transplant status Electrolytes 2 Months I15.1 - Hypertension secondary to other renal disorders, Z94.0 - Kidney transplant status Magnesium 2 Months I15.1 - Hypertension secondary to other renal disorders, Z94.0 - Kidney transplant status Complete Blood Count Auto Diff 2 Months I15.1 - Hypertension secondary to other renal disorders, Z94.0 - Kidney transplant status Aspartate Amino Transferase 2 Months I15.1 - Hypertension secondary to other renal disorders, Z94.0 - Kidney transplant status Alanine Aminotransferase 2 Months I15.1 - Hypertension secondary to other renal disorders, Z94.0 - Kidney transplant status Parathyroid Hormone Intact 2 Months I15.1 - Hypertension secondary to other renal disorders, Z94.0 - Kidney transplant status Tacrolimus Prograf Today I15.1 - Hypertension secondary to other renal disorders, Z94.0 - Kidney transplant status Calcium Today I15.1 - Hypertension secondary to other renal disorders, Z94.0 - Kidney transplant status Creatinine Today I15.1 - Hypertension secondary to other renal disorders, Z94.0 - Kidney transplant status Magnesium Today I15.1 - Hypertension secondary to other renal disorders, Z94.0 - Kidney transplant status Phosphorus Today I15.1 - Hypertension secondary to other renal disorders, Z94.0 - Kidney transplant status Complete Blood Count Auto Diff Today I15.1 - Hypertension secondary to other renal disorders, Z94.0 - Kidney transplant status Coding Level of Care Code Est Pt Level 4 (33785) Diagnoses Hypertension secondary to other renal disorders I15.1 Hypertension type: secondary to other renal disorders History of kidney transplant Z94.0
[2025-02-06 11:23] VITALS: BP 130/90; PULSE 102; O2SAT 98; BMI 40.1
== END 2025-02-06 11:38 | disposition home or self-care (01) ==
LOC: HO.HKA 11:19
PROVIDERS: PCP Internal Medicine; Visit Provider Internal Medicine Nephrology
DX: I15.1 Hypertension secondary to other renal disorders (principal); Z94.0 Kidney transplant status
CPT/HCPCS: 99214

== ENCOUNTER → 2025-02-06 11:18 | Outpatient (BNVA) | payer MEDICARE, MEDICAID, SELFPAY | PROVIDERS: PCP Internal Medicine; Visit Provider Internal Medicine Nephrology | DX: I15.1 Hypertension secondary to other renal disorders (principal); Z94.0 Kidney transplant status | CPT/HCPCS: 99212 ==

== ENCOUNTER 2025-02-07 09:07 | Outpatient (REF) | payer MEDICARE, MEDICAID, SELFPAY ==
[2025-02-07 09:52] LABS: MANUAL DIFF FLAG NO
[2025-02-07 09:55] LABS: Hematocrit 32.3 % (37.0-47.0); Hemoglobin 9.8 g/dl (12.0-16.0); Imm Gran Abs Auto 0.03 X10*3/uL (0.00-0.03); Imm Gran Pct Auto 0.3 % (0.0-0.4); Lymphocytes Absolute Auto 1.8 X10*3/uL (1.2-4.9); Mean Corpuscular HGB Conc 30.3 g/dl (31.0-35.0); Mean Corpuscular Hemoglobin 23.7 pg (27.0-33.0); Mean Corpuscular Volume 78.0 fL (80.0-98.0); NRBC Abs Auto 0.000 X10*3/uL (0.0-0.012); NRBC Pct Auto 0.0 /100WBC (0.0-0.2); Platelet Count 301 X10*3/uL (160-400); Red Blood Count 4.14 X10*6/uL (4.20-5.50); White Blood Count 9.4 X10*3/uL (4.8-10.8)
[2025-02-07 10:09] LABS: Alanine Aminotransferase 15 U/L (0-31); Aspartate Amino Transferase 16 U/L (5-31); Calcium 8.7 mg/dL (8.4-10.2); Estimated Glomerular Filt Rate 39; Magnesium 1.7 mg/dL (1.6-2.6)
[2025-02-07 12:10] LABS: Protein/Creatinine Ratio, Ur 0.11 (<0.2); Total Protein Urine Random 10 mg/dL (<12)
[2025-02-08 09:19] LABS: Tacrolimus Prograf 6.9 mcg/L
== END 2025-02-07 09:08 | disposition home or self-care (01) ==
LOC: HO.10HDL 09:07
PROVIDERS: Visit Provider Internal Medicine Nephrology
DX: I15.1 Hypertension secondary to other renal disorders (principal); Z94.0 Kidney transplant status; Z79.899 Other long term (current) drug therapy
CPT/HCPCS: 36415; 80197; 82310; 82565; 82570; 83735; 84100; 84156; 84450; 84460; 85025

== ENCOUNTER 2025-03-19 09:06 | Outpatient (AMB) | payer MEDICARE, MEDICAID, SELFPAY ==
--- NOTE | 2025-03-19 09:24 | A.OFFVIS_ITS ---
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 Pt has never been on dialysis. Referred by for ligation. 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 The discoloration of the right upper extremity is not associated with pain and has been present since 2019 after a fistula placement in [place], [place] by Dr. Pasquale Heck. The patient underwent a kidney transplant at [facility] in 2019, with no current complications reported. FOR[facility]LY [facility] Medical History AV fistula Asthma Hypertension Surgical History Status post biopsy of kidney H/O tubal ligation Kidney replaced by transplant Family History Mother HTN (hypertension) Father Diabetes Cardiovascular disease Social History Housing: House Patient Tobacco Use Status: Never used Tobacco e-Cigarette/Vaping Use: Never Used Second Hand Smoke Exposure: No service: No Current occupational status: unemployed Cognitive needs: No Hearing needs: No Vision needs: No Review of Systems Const All systems reviewed & are unremarkable except as noted in HPI and below Reports no additional complaints ENT Reports Normal hearing present Card Denies chest pain, Denies chest pain at rest, Denies chest pain with activity and Denies pedal edema Resp Denies cough GI Denies abdominal pain Musc Denies abnormal gait, Denies muscle cramps and Denies radiating pain into limb Skin/Breast Denies skin ulcer and Denies wounds Neuro Reports Normal hearing present and Denies abnormal gait Psych Reports no additional complaints Physical Exam Vital Signs: BMI result Body Mass Index 40.1 Const General: cooperative, healthy appearing and comfortable Orientation/consciousness: oriented to person, oriented to place and oriented to time HEENT Head: Yes normal to inspection Neck Neck: Yes normal visual inspection Carotids: no bruits Chest Chest palpation & inspection: normal inspection of the chest Resp Effort & Inspection: normal respiratory effort and able to speak in complete sentences Auscultation: clear to auscultation bilaterally, no crackles, no rales, no rhonchi and no wheezes Cardio Rate: regular rate Rhythm: regular rhythm Heart sounds: S1 normal heart sound present and S2 normal heart sound present Bruits: no carotid bruits Peripheral pulses: Peripheral pulses 2+ throughout GI Inspection: Yes normal to inspection Skin Wounds: no wounds Hair: normal Neuro General: oriented to person, oriented to place and oriented to time Cranial nerves: Yes CN's II-XII intact bilaterally and Yes Normal hearing present Cognition (Neuro): normal cognition Motor exam (neuro): 5/5 motor strength present throughout Extrem Other: Large pulsatile aneurysmal fistula right forearm General: No clubbing, No cyanosis and No edema Psych Appearance: grossly normal Mental Status: mental status grossly normal Speech and movement: Normal speech and movement present Assessment & Plan Assessment & Plan (1) AV fistula: Code(s): I77.0 - Arteriovenous fistula, acquired Category: Medical Plan: In short patient is doing well with with donor kidney transplant. She has this right upper extremity AV fistula which has been a source of pain and discomfort for an has become quite aneurysmal. Patient will require right upper extremity fistula ligation and removal. Risks benefits complications of the procedure were discussed in detail with the patient she understood and consented. We will schedule as soon as possible. Coding Level of Care Code New Pt Level 4 (02543) Complex EM visit Add On G2211 Diagnoses AV fistula I77.0
[2025-03-19 09:25] VITALS: BMI 40.1
== END 2025-03-19 10:00 | disposition home or self-care (01) ==
LOC: HO.HVS 09:07
PROVIDERS: PCP Internal Medicine; Visit Provider Surgery Vascular Surgery
DX: I77.0 Arteriovenous fistula, acquired (principal)
CPT/HCPCS: 99204; G2211

== ENCOUNTER → 2025-03-19 09:06 | Outpatient (BNVA) | payer MEDICARE, MEDICAID, SELFPAY | PROVIDERS: PCP Internal Medicine; Visit Provider Surgery Vascular Surgery | DX: I77.0 Arteriovenous fistula, acquired (principal); Z94.0 Kidney transplant status; R23.8 Other skin changes; M79.601 Pain in right arm | CPT/HCPCS: 99202 ==

== ENCOUNTER 2025-04-15 08:47 | Day surgery (SDC) | payer MEDICARE, MEDICAID, SELFPAY ==
--- NOTE | 2025-04-11 09:10 | HO.ANESPROP2 ---
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 She was never on dialysis and had a pre-emptive transplant. BMI 40 PMFSH Active Problems Active Problems: All Active Problems Hair thinning (Acute) Class 2 severe obesity with serious comorbidity and body mass index (BMI) of 38.0 to 38.9 in adult (Acute) AV fistula (Acute) Hypertension (Acute) Immunosuppressed status (Acute) Major depressive disorder, recurrent episode (Acute) History of kidney transplant (Acute) Past Medical History Medical History AV fistula Asthma Hypertension Family History Family History Mother HTN (hypertension) Father Diabetes Cardiovascular disease Surgical History Surgical History Status post biopsy of kidney H/O tubal ligation Kidney replaced by transplant (~08/2020) Social History Social History Housing: House Patient Tobacco Use Status: Never used Tobacco e-Cigarette/Vaping Use: Never Used Second Hand Smoke Exposure: No Have you been hit, kicked, punched, or otherwise hurt by someone within the past year? If so, by whom?: No Are you DNR?: No Advance Directives: No Advance Directives Information Provided: Yes service: No Current occupational status: unemployed Cognitive needs: No Hearing needs: No Vision needs: No Meds Allergies Allergy/AdvReac Type Severity Reaction Status Date / Time No Known Allergies Allergy Verified 03/19/25 09:28 Home Medications ?Medication ?Instructions ?Recorded ?Confirmed ?Last Taken ?Type cholecalciferol (vitamin D3) 25 25 mcg PO DAILY 11/01/23 04/12/25 04/14/25 History mcg (1,000 unit) capsule prednisone 5 mg tablet 5 mg PO DAILY 03/19/25 04/12/25 04/15/25 History nifedipine 30 mg tablet,extended 30 mg PO DAILY 11/04/12/25 04/14/25 History release Exam Pertinent Lab Results Pertinent Lab Results: Laboratory Tests 12/10/24 02/07/25 08:55 09:10 WBC 9.4 Hgb 9.8 L Hct 32.3 L Plt Count 301 Sodium 140 Potassium 3.5 Chloride 112 H Carbon Dioxide 21 L BUN 24 H Creatinine 1.54 H Assessment and Plan Assessment Anesthesia Assessment: Chart Reviewed Documented by User: Reinaldo Cobb MD 04/15/25 09:22 [facility] Past Medical History Medical History AV fistula Asthma Hypertension Family History Family History Mother HTN (hypertension) Father Diabetes Cardiovascular disease Family history of problems with anesthesia: No Surgical History Surgical History Status post biopsy of kidney H/O tubal ligation Kidney replaced by transplant (~08/2020) History of Problems with Anesthesia: No Social History Social History Housing: House Patient Tobacco Use Status: Never used Tobacco e-Cigarette/Vaping Use: Never Used Second Hand Smoke Exposure: No Have you been hit, kicked, punched, or otherwise hurt by someone within the past year? If so, by whom?: No Are you DNR?: No Advance Directives: No Advance Directives Information Provided: Yes service: No Current occupational status: unemployed Cognitive needs: No Hearing needs: No Vision needs: No Meds Allergies Allergy/AdvReac Type Severity Reaction Status Date / Time No Known Allergies Allergy Verified 03/19/25 09:28 Home Medications ?Medication ?Instructions ?Recorded ?Confirmed ?Last Taken ?Type cholecalciferol (vitamin D3) 25 25 mcg PO DAILY 11/01/23 04/12/25 04/14/25 History mcg (1,000 unit) capsule prednisone 5 mg tablet 5 mg PO DAILY 03/19/25 04/12/25 04/15/25 History nifedipine 30 mg tablet,extended 30 mg PO DAILY 04/12/25 04/12/25 04/14/25 History release Exam Exam Date and Time: 04/15/25 Airway Mallampati Class: II TM Dist: >3cm Neck ROM: Full Heart: rrr Lungs: ctab vesicular Assessment and Plan Assessment Anesthesia Assessment: Anesthesia Plan Discussed Final Anesthetic Review Family History of Problems with Anesthesia: No History of Problems with Anesthesia: No NPO: Yes ASA Class: III Final Preanesthetic Review: No Changes in Pt Med Stat, Meds/Allgs Chart Reviewed, Consent Obtained/Reviewed and Anes Risks/Benef Reviewed Patient Risk: Low Procedure Risk: Low Anesthetic Plan Anesthetic Plan: GA and Regional Block Disposition: Standard PACU
[2025-04-12 09:11] VITALS: BMI 40.1
[2025-04-15] VITALS (9 sets, daily range): BP systolic 112–142; BP diastolic 76–97; PULSE 69–94; RESP 16–27; TEMP 36.1–36.9; O2SAT 93–97; BMI 40.4
--- NOTE | 2025-04-15 08:35 | MHC.SHP ---
Pre-Procedural Eval Section A - 24 Hr Update-Section A only Date of Service: 04/15/25 The patient is an INPATIENT: No Changes since office visit: Yes Patient answered all questions The patient has been examined within 24 hours of the surgical procedure. The History & Physical has been completed within 30 days and I have reviewed it.: Yes Section B - Complete if H&P > 30 days Chief Complaint: N18.6 END STAGE RENAL DISEASE, FISUTLA LIGATION Allergies: Allergies Allergy/AdvReac Type Severity Reaction Status Date / Time No Known Allergies Allergy Verified 03/19/25 09:28 Plan I have reviewed the history and physical and performed a pertinent physical examination on my patient. No changes have occurred unless specified. Time Spent With Patient Time: Total time managing care of this patient today ____ minutes.
[2025-04-15] MEDS: Lactated Ringers 1,000 ML 100 ML IVCONT (09:23)
[2025-04-15 09:38] LABS: Hematocrit 31.7 % (37.0-47.0); Hemoglobin 9.5 g/dl (12.0-16.0); Mean Corpuscular HGB Conc 30.0 g/dl (31.0-35.0); Mean Corpuscular Hemoglobin 22.9 pg (27.0-33.0); Mean Corpuscular Volume 76.4 fL (80.0-98.0); NRBC Abs Auto 0.000 X10*3/uL (0.0-0.012); NRBC Pct Auto 0.0 /100WBC (0.0-0.2); Platelet Count 303 X10*3/uL (160-400); Red Blood Count 4.15 X10*6/uL (4.20-5.50); White Blood Count 10.1 X10*3/uL (4.8-10.8)
[2025-04-15 09:45] LABS: Anion Gap 13 (12-20); Blood Urea Nitrogen 28 mg/dL (9-16); Calcium 8.7 mg/dL (8.4-10.2); Carbon Dioxide 19 mmol/L (22-29); Chloride 111 mmol/L (96-108); Creatinine Clr Calc Pharmacy 63.2; Estimated Glomerular Filt Rate 45; Potassium 3.8 mmol/L (3.3-5.1); Sodium 139 mmol/L (135-145)
--- NOTE | 2025-04-15 12:13 | P.OP_ITS ---
Operative Note Operative Note Date of Service: 04/15/25 Narrative: Operative note by [facility] Preoperative diagnosis:1. Chronic renal insufficiency 2. Aneurysmal right forearm AV fistula Postoperative diagnosis: Same Procedure: Ligation of right forearm AV fistula. Surgeon:Juan Gonsales M.D. Lease Administration Analyst: Raymon CORRIGAN Anesthesia: General Specimens: 1 Drains: None Estimated blood loss: 50 mL Indications: Pleasant 34-year-old female as had a prior history end-stage renal disease had a right forearm radiocephalic fistula placed in [facility]. Has subsequently received kidney transplant no longer needs that for dialysis. Fistula became quite aneurysmal and painful for her. She now presents for ligation of that fistula. The patient has signed the informed consent after reviewing risks, complications, benefits, and alternatives previously discussed with the patient. The patient was given the opportunity to ask any additional questions or voice any concerns. All questions were answered to the patient's satisfaction. Procedure in detail: Patient was brought to the operating room prior to which a time-out was called for patient identification site verification. Right forearm was prepped and draped in standard surgical fashion. Incision was carried out over the aneurysmal portion. We were able to dissect down and get through to the true aneurysm we identified the more distal portion which was close to the anastomosis. We were able to get into the true vein and encircled that. More proximally after significant dissection 10 cm up we were able to also identify good venetie vein which was normal in caliber. This was both encircled with silastic loops. We clamped this with a vascular clamp. We subsequently removed that aneurysmal sac and sent it off as specimen. Each side was tied down with a 0 silk and subsequently stick-tied with a 2-0 silk tie. Once this was all accomplished adequate hemostasis was achieved. Vistaseal was then given. Deep layer was reapproximated using 3-0 Polysorb superficial layer with 3-0 poly Sorb by skin with running 4-0 subcuticular Monocryl. Dermabond was used as a sterile dressing. At the end the case sponge instrument counts were correct. Patient tolerated the procedure well. Returned to recovery with stable vitals This note is constructed using voice recognition software. While every effort has been made to ensure accuracy, engineering specialist technician errors may have been included. Thank you for allowing me to participate in the care of your patient. Yours sincerely, Juan Gonsales MD, FACS, R.P.V.I.
== END 2025-04-15 13:33 | disposition home or self-care (01) ==
PROVIDERS: PCP Internal Medicine; Visit Provider Surgery Vascular Surgery
PROC: (CPT 37607; principal; 2025-04-15 10:40)
DX: I12.0 Hypertensive chronic kidney disease with stage 5 chronic kidney disease or end stage renal disease (principal); N18.6 End stage renal disease; I77.0 Arteriovenous fistula, acquired; Z94.0 Kidney transplant status; J45.909 Unspecified asthma, uncomplicated; Z56.0 Unemployment, unspecified; Z79.52 Long term (current) use of systemic steroids; Z79.899 Other long term (current) drug therapy
CPT/HCPCS: 37607; 36415; 80048; 85027; 88304; A4649; C9250; J0131; J0690; J1100; J1644; J2003; J2250; J2371; J2405; J2704; J2795; J3010

== ENCOUNTER → 2025-04-15 08:47 | Outpatient (BNV) | payer MEDICARE, MEDICAID, SELFPAY | PROVIDERS: PCP Internal Medicine; Visit Provider Surgery Vascular Surgery | DX: I72.1 Aneurysm of artery of upper extremity (principal); Z94.0 Kidney transplant status | CPT/HCPCS: 37607; 99499 ==

== ENCOUNTER 2025-04-17 11:15 | Outpatient (REF) | payer MEDICARE, MEDICAID, SELFPAY ==
[2025-04-17 12:36] LABS: MANUAL DIFF FLAG NO
[2025-04-17 12:42] LABS: Hematocrit 32.2 % (37.0-47.0); Hemoglobin 9.6 g/dl (12.0-16.0); Imm Gran Abs Auto 0.04 X10*3/uL (0.00-0.03); Imm Gran Pct Auto 0.5 % (0.0-0.4); Lymphocytes Absolute Auto 2.1 X10*3/uL (1.2-4.9); Mean Corpuscular HGB Conc 29.8 g/dl (31.0-35.0); Mean Corpuscular Hemoglobin 22.9 pg (27.0-33.0); Mean Corpuscular Volume 76.7 fL (80.0-98.0); NRBC Abs Auto 0.000 X10*3/uL (0.0-0.012); NRBC Pct Auto 0.0 /100WBC (0.0-0.2); Platelet Count 323 X10*3/uL (160-400); Red Blood Count 4.20 X10*6/uL (4.20-5.50); White Blood Count 7.7 X10*3/uL (4.8-10.8)
[2025-04-17 13:07] LABS: Alanine Aminotransferase 13 U/L (0-31); Anion Gap 10 (12-20); Aspartate Amino Transferase 18 U/L (5-31); Blood Urea Nitrogen 17 mg/dL (9-16); Calcium 8.9 mg/dL (8.4-10.2); Carbon Dioxide 23 mmol/L (22-29); Chloride 109 mmol/L (96-108); Estimated Glomerular Filt Rate 40; Magnesium 1.6 mg/dL (1.6-2.6); Potassium 3.8 mmol/L (3.3-5.1); Sodium 138 mmol/L (135-145)
[2025-04-17 13:16] LABS: Parathyroid Hormone Intact 75.3 pg/mL (8.7-77.1); Protein/Creatinine Ratio, Ur 0.08 (<0.2); Total Protein Urine Random 8 mg/dL (<12)
[2025-04-18 13:14] LABS: Tacrolimus Prograf 3.5 mcg/L
== END 2025-04-17 11:16 | disposition home or self-care (01) ==
LOC: HO.10HDL 11:15
PROVIDERS: Visit Provider Internal Medicine Nephrology
DX: I15.1 Hypertension secondary to other renal disorders (principal); Z94.0 Kidney transplant status; Z13.21 Encounter for screening for nutritional disorder
CPT/HCPCS: 36415; 80051; 80197; 82306; 82310; 82565; 82570; 83735; 83970; 84100; 84156; 84450; 84460; 84520; 85025

== ENCOUNTER 2025-04-24 13:50 | Outpatient (AMB) | payer MEDICARE, MEDICAID, SELFPAY ==
--- NOTE | 2025-04-24 14:04 | HO.NEPHOV_ITS ---
Vital Signs 04/24/25 14:07 Height 5 ft 1.4 in Weight 224 lb 8 oz BMI 41.9 BP 130/90 H Blood Pressure Location Lt brachial Position Sitting Pulse 100 Pulse Source Pulse Oximeter Pulse Oximetry (%) 99 Oxygen Delivery Method Room Air Intake Visit Reasons: 2mon Transplant f/u w/labs-Conf Restaurant Team Member Required: Yes Restaurant Team Member Language: It Applications Developer Services: Restaurant Team Member Present Restaurant Team Member Name: Ender [id number] Information Interpreted: clinical only Accompanied by: Self / Same As Patient Allergies No Known Allergies Allergy (Verified 04/24/25 14:07) HPI Comments Details: Ms. 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 She was never on dialysis and had a pre-emptive transplant. She had a right upper extremity AV fistula. Her PRA was 87%, EPTS 2% with the donor/recipient HLA MM, A, B, DR 2,2,2. Surgery was performed by Dr. Ugarte, right to right. Her donor KDPI was 40 6%. Donor history unremarkable. CMV donor was negative but recipient positive. EBV donor positive and recipient positive. Induction was done with Thymoglobulin and maintenance treatment had been with prednisone, tacrolimus and mycophenolate. She never had any significant proteinuria with a stable serum creatinine around 1.4. It had gone upto 1.7 which improved to 1.5. She had DSA absent by the last result fax note to me from [facility]. Her CMV prophylaxis was completed on 11/20/2021 with a PCP/toxo prophylaxis completed on 02/20/2022. Her BK and CMV PCR was negative on 11/12/22. She has hypertension and is on nifedipine. Her blood pressure is quite well controlled. Her PTH and vitamin-D had been well controlled. She has been taking oral vitamin-D D. Her serum uric acid has been normal. She has moved from [facility] and was seen for transplant renal care. She does not have any chest pain, shortness of breath, paroxysmal nocturnal dyspnea, orthopnea, orthostatic symptoms, pedal edema, skin rashes, joint swellings. She does not take any nonsteroidal anti-inflammatories. She claims to be compliant with her medications. She had her AVF ligated [facility] Medical History AV fistula Asthma Hypertension Surgical History Status post biopsy of kidney H/O tubal ligation Kidney replaced by transplant (~08/2020) Family History Mother HTN (hypertension) Father Diabetes Cardiovascular disease Social History Housing: House Comment: COUNTS CORRECT Patient Tobacco Use Status: Never used Tobacco e-Cigarette/Vaping Use: Never Used Second Hand Smoke Exposure: No service: No Current occupational status: unemployed Cognitive needs: No Hearing needs: No Vision needs: No Review of Systems Const All systems reviewed & are unremarkable except as noted in HPI and below Physical Exam Vital Signs: Last Vital Signs Pulse 100 04/24/25 14:07 BP 130/90 H 04/24/25 14:07 Pulse Ox 99 04/24/25 14:07 Oxygen Delivery Method Room Air 04/24/25 14:07 BMI result Body Mass Index 41.9 Const General: comfortable and no acute distress Orientation/consciousness: patient oriented x3 HEENT Head: Yes normocephalic Mouth: Normal oral and palatal mucosa present Eyes EOM: EOMs intact bilaterally Neck Neck: Yes supple Resp Auscultation: clear to auscultation bilaterally Cardio Jugular venous distension: no JVD Rate: regular rate GI Palpation (GI): Soft to palpation Auscultation: normal bowel sounds General: Yes no CVA tenderness Back/Spine/Pelvis Back: no CVA tenderness Skin General skin exam: no rashes or lesions noted Neuro General: patient oriented x3 and moves all extremities Extrem General: Yes no pedal edema Results Reviewed Nephrology Results: Hgb, (12.0-16.0) 9.6 g/dl L 04/17/25 WBC, (4.8-10.8) 7.7 X10*3/uL 04/17/25 Plt Count, (160-400) 323 X10*3/uL 04/17/25 Sodium, (135-145) 138 mmol/L 04/17/25 Potassium, (3.3-5.1) 3.8 mmol/L 04/17/25 Chloride, (96-108) 109 mmol/L H 04/17/25 Carbon Dioxide, (22-29) 23 mmol/L 04/17/25 BUN, (9-16) 17 mg/dL H 04/17/25 Creatinine, (0.5-1.4) 1.51 mg/dL H 04/17/25 Calcium, (8.4-10.2) 8.9 mg/dL 04/17/25 Phosphorus, (2.7-4.5) 3.2 mg/dL 04/17/25 PTH Intact, (8.7-77.1) 75.3 pg/mL 04/17/25 Urine Creatinine 95.70 mg/dL 04/17/25 Protein/Creatinin Ratio, (<0.2) 0.08 04/17/25 Assessment & Plan Assessment & Plan (1) Hypertension: Code(s): I10 - Essential (primary) hypertension Category: Medical Qualifiers: Hypertension type: secondary to other renal disorders Qualified Code(s): I15.1 - Hypertension secondary to other renal disorders (2) History of kidney transplant: Code(s): Z94.0 - Kidney transplant status Category: Surgical Plan Mr. 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 She never was on dialysis even though she had a upper extremity AV fistula. Her baseline serum creatinine has been around 1.4-1.5. She is not known to have any significant proteinuria. She has no history of DSA positivity, cellular or antibody mediated rejection. She has history of high PRA and has been on tacrolimus and mycophenolate along with prednisone. Her CMV and PCP prophylaxis were completed in 2021. Her blood pressure has been well controlled. He needs to lose weight. She is on oral sodium bicarbonate and magnesium replacement along with a vitamin-D. She may be a candidate for SGLT2 i. All these were discussed in detail with an workers compensation legal secretary. All questions answered Orders: Orders Complete Blood Count Auto Diff 2 Months I15.1 - Hypertension secondary to other renal disorders, Z94.0 - Kidney transplant status Creatinine 2 Months I15.1 - Hypertension secondary to other renal disorders, Z94.0 - Kidney transplant status Calcium 2 Months I15.1 - Hypertension secondary to other renal disorders, Z94.0 - Kidney transplant status Hemoglobin A1c 2 Months I15.1 - Hypertension secondary to other renal disorders, Z94.0 - Kidney transplant status Aspartate Amino Transferase 2 Months I15.1 - Hypertension secondary to other renal disorders, Z94.0 - Kidney transplant status Parathyroid Hormone Intact 2 Months I15.1 - Hypertension secondary to other renal disorders, Z94.0 - Kidney transplant status Vitamin D 25-OH Total 2 Months I15.1 - Hypertension secondary to other renal disorders, Z94.0 - Kidney transplant status Magnesium 2 Months I15.1 - Hypertension secondary to other renal disorders, Z94.0 - Kidney transplant status Phosphorus 2 Months I15.1 - Hypertension secondary to other renal disorders, Z94.0 - Kidney transplant status Tacrolimus Prograf 2 Months I15.1 - Hypertension secondary to other renal disorders, Z94.0 - Kidney transplant status Blood Urea Nitrogen 2 Months I15.1 - Hypertension secondary to other renal disorders, Z94.0 - Kidney transplant status Electrolytes 2 Months I15.1 - Hypertension secondary to other renal disorders, Z94.0 - Kidney transplant status Alanine Aminotransferase 2 Months I15.1 - Hypertension secondary to other renal disorders, Z94.0 - Kidney transplant status Tacrolimus Prograf Today Z94.0 - Kidney transplant status Coding Level of Care Code Est Pt Level 4 (37533) Diagnoses Hypertension secondary to other renal disorders I15.1 Hypertension type: secondary to other renal disorders History of kidney transplant Z94.0
[2025-04-24 14:07] VITALS: BP 130/90; PULSE 100; O2SAT 99; BMI 41.9
== END 2025-04-24 14:37 | disposition home or self-care (01) ==
LOC: HO.HKA 13:51
PROVIDERS: PCP Internal Medicine; Visit Provider Internal Medicine Nephrology
DX: I15.1 Hypertension secondary to other renal disorders (principal); Z94.0 Kidney transplant status
CPT/HCPCS: 99214

== ENCOUNTER → 2025-04-24 13:50 | Outpatient (BNVA) | payer MEDICARE, MEDICAID, SELFPAY | PROVIDERS: PCP Internal Medicine; Visit Provider Internal Medicine Nephrology | DX: I15.1 Hypertension secondary to other renal disorders (principal); Z94.0 Kidney transplant status | CPT/HCPCS: 99212 ==